=== PATIENT | female | born 1995 | race American Indian/Alaskan Native ===

== ENCOUNTER 2018-11-26 10:58 | Outpatient (CLI) | payer OTHER ==
[2018-11-26] MEDS ORDERED: LACTATED RINGERS 500 ML IV ONE (11:18)
[2018-11-26 13:06] LABS: Amphetamine Screen,Urine PRESUMPTIVE NEGATIVE; Benzodiazepines Screen,Urine PRESUMPTIVE NEGATIVE; Cannabinoid Screen,Urine PRESUMPTIVE NEGATIVE; Cocaine Screen,Urine PRESUMPTIVE NEGATIVE; Methadone Screen,Urine PRESUMPTIVE NEGATIVE; Opiate Screen,Urine PRESUMPTIVE NEGATIVE
[2018-11-26 13:10] LABS: Bilirubin,Urine NEG (Negative); Blood,Urine NEG (Negative); Color,Urine Yellow (Yellow); Mucus,Urine 3+ /HPF; Urobilinogen,Urine < 2.0 mg/dL (<2.0)
[2018-11-26 13:16] VITALS: BP 155/88
[2018-11-26] MEDS ORDERED: LACTATED RINGERS 1,000 ML IV SCH (14:00)
--- NOTE | 2018-11-26 16:09 | Ultrasound Report ---
PROCEDURE: US OB FOLLOW UP TECHNIQUE: Real-time transabdominal sonography of the uterus, placenta, amniotic fluid, adnexa, and fetus was performed with image documentation. Detailed anatomic examination was performed. Jorden urements were obtained to determine age/size. M-mode Doppler was used to document heartbe at. HISTORY: no care COMPARISONS: None. FINDINGS: MATERNAL: Uterus and cervix: The cervix is closed measures 4.8 cm in length. Adnexa and ovaries: Not visualized. IUP: Single live intrauterine gestation. Position: Cephalic Placental position: Fundal, right lateral, without previa . Amniotic fluid volume Normal. WILL is 9.9 cm. Cardiac activity: Regular rhythm at 144 bpm. BIOMETRY: Biparietal diameter: 7.7 cm, corresponding to a gestational age of 30 weeks, 5 days. Head circumference: 28.04 cm, corresponding to a gestational age of 30 weeks, 5 days. abdominal circumference: 26.59 cm, corresponding to a gestational age of 30 weeks, 5 days. Femur length: 5.63 cm, corresponding to a gestational age of 29 weeks, 4 days. Ratio biometry: Normal . Estimated Weight: 1557 grams +/- 230 grams. 3 pounds, 7 ounces +/- 8.ounces. Mean Gestational Age (composite criteria) based on today's measurements: 30 weeks, 3 days. Estimated Due Date (earliest scan): 02/01/2019. IMPRESSION: Single live intrauterine gestation at 30 weeks, 3 days. Estimated due date: 02/01/2019. No anatomic abnormality. This document is electronically signed by Katja Gonzales MD., November 26 2018 04:07:25 PM ET
--- NOTE | 2018-11-26 16:22 | Ultrasound Report ---
PROCEDURE: US OB BPP WO NON-STRESS TECHNIQUE: Sonographic evaluation for breathing, movement, tone, and amniotic flui d volume was performed. HISTORY: well being COMPARISONS: None . FINDINGS: FETUS Amniotic fluid volume Normal-score 2. At least one vertical pocket >2 cm or more in vertical axis . breathing: Normal-score 2 . movement: Normal-score 2 . tone: Normal-score 2 . Score: 8 of 8 . IMPRESSION: Normal biophysical profile . This document is electronically signed by Katja Gonzales MD., November 26 2018 04:19:41 PM ET
== END 2018-11-26 14:05 | disposition home or self-care (01) ==
LOC: TRG 10:58
PROVIDERS: ATTEND Obstetrics & Gynecology
DX: O62.9 Abnormality of forces of labor, unspecified (principal); O26.853 Spotting complicating pregnancy, third trimester; Z87.891 Personal history of nicotine dependence; Z3A.31 31 weeks gestation of pregnancy
CPT/HCPCS: 76816; 76819; 80307; 81001; J7120; 96360; 96361

== ENCOUNTER 2018-11-26 20:15 | Outpatient (CLI) | payer OTHER ==
[2018-11-26] MEDS ORDERED: LACTATED RINGERS 500 ML IV ONE (21:41)
[2018-11-26 21:51] LABS: Hematocrit 29.2 % (30.3-42.9); Hemoglobin 9.8 gm/dl (10.1-14.3); Mean Corpuscular HGB Conc 34 % (30-34); Mean Corpuscular Volume 83 fl (79-97); Platelet Count 222 K/mm3 (140-440); Red Blood Count 3.53 M/mm3 (3.65-5.03)
[2018-11-26 22:13] LABS: Alanine Aminotransferase 12 units/L (7-56); Uric Acid 3.6 mg/dL (3.5-7.6)
[2018-11-26 22:26] VITALS: BP 142/81
== END 2018-11-26 22:39 | disposition home or self-care (01) ==
LOC: TRG 20:15
PROVIDERS: ATTEND Obstetrics & Gynecology
DX: O47.03 False labor before 37 completed weeks of gestation, third trimester (principal); Z3A.31 31 weeks gestation of pregnancy
CPT/HCPCS: 36415; 59025; 76816; 76819; 80307; 81001; 82565; 83615; 84450; 84460; 84550; 85027; 96360; 96361; J7120

== ENCOUNTER 2018-12-03 11:51 | Inpatient (IN) | payer OTHER ==
[2018-12-03] MEDS ORDERED: LACTATED RINGERS 500 ML IV ONE (11:54)
[2018-12-03 12:41] LABS: Hemoglobin 9.6 gm/dl (10.1-14.3); Mean Corpuscular HGB Conc 33 % (30-34); Mean Corpuscular Volume 82 fl (79-97); Platelet Count 214 K/mm3 (140-440); Red Blood Count 3.54 M/mm3 (3.65-5.03); Red Cell Distribution Width 15.1 % (13.2-15.2)
[2018-12-03 12:50] LABS: Bilirubin,Urine NEG (Negative); Blood,Urine NEG (Negative); Color,Urine Amber (Yellow); Mucus,Urine 3+ /HPF
[2018-12-03 12:54] LABS: Protein,Urine >500 mg/dL (Negative)
[2018-12-03 13:05] LABS: Alanine Aminotransferase 10 units/L (7-56); Uric Acid 5.1 mg/dL (3.5-7.6)
[2018-12-03] MEDS ORDERED: LACTATED RINGERS 1,000 ML IV SCH (15:00)
--- NOTE | 2018-12-03 16:39 | History and Physical Report ---
History of Present Illness Date of examination: 12/03/18 Date of admission: 12/03/18 15:04 Chief complaint: EDC Calculations LMP: 12/24/2014 EDC Confirmation: 02/01/2019 Gestational Age: 31 3/7 weeks Past History : 5 Term Births: 3 Premature Births: 0 Living Children: 3 Para: 3 Mult. Births: 0 Prev : 3 Prev. attempt? none Aborta: 1 Elect. Ab: 0 Spont. Ab: 1 Ectopics: 0 # 1 Delivery date: 08/2013 Weeks Gestation: 37 Delivery type: Delivery location: [facility] Infant Sex: Female weight: 5#13 Comments: breech # 2 Delivery date: 08/2010 Weeks Gestation: 8 Comments: SAB # 3 Delivery date: 12/16/2014 Weeks Gestation: 38 Delivery type: Anesthesia type: epidural Delivery location: [facility] Sex: female weight: 5.25 Comments: PPROM, previous c/s desires repeat c/s # 4 Delivery date: 01/28/2016 Weeks Gestation: term labor: no Delivery type: Infant Sex: Male weight: 6#15oz Past Medical History: Pt reports being told she had elevated b/p several times in ED but never offically dx with htn - likely CHTN Past Surgical History: C/S x 3 Past Medical History Anesthesia Complications: negative Anemia: negative Autoimmune Disorder: negative Bleeding Disorder: negative Blood Transfusions: negative Breast Disease: negative Diabetes: negative Heart Disease: negative Hypertension: positive Hepatitis/Liver Disease: negative Kidney Disease/UTI: negative Neurologic/Epilepsy/Migraines: negative Phlebitis/Varicosities: negative Psychiatric: negative Pulmonary Disease/Asthma: negative Thyroid Disease: negative Hospitalizations: negative 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 Infection History Hx of STD: chlamydia HIV Risk Eval: low risk Hepatitis B Risk Eval: low risk Personal hx. of genital herpes: no Partner hx. of genital herpes: no Rash, Viral, or Febrile illness since last LMP? no Varicella/Chicken Pox Status: Previous Disease TB Risk: no Genetic History Congenital Heart Defect: Mom: no Dad: no Ivonne Disease: Mom: no Dad: no Thalassemia Mom: no Dad: no Neural Tube Defect Mom: no Dad: no Down's Syndrome Mom: no Dad: no Dillon-Sachs Mom: no Dad: no Sickle Cell Disease/Trait Mom: no Dad: no Hemophilia Mom: no Dad: no Muscular Dystrophy Mom: no Dad: no Cystic Fibrosis Mom: no Dad: no Vernon Chorea Mom: no Dad: no Mental Retardation Mom: no Dad: no Fragile X Mom: no Dad: no Other Genetic/Chromosomal Disorder Mom: no Dad: no Child w/other defect Mom: no Dad: no Enviromental Exposures Xray Exposure: no Medication, drug, or alcohol use since LMP: no Chemical/Other Exposure: no Exposure to Cat Liter: no Hx of Parvovirus (Fifth Disease): no Occupational Exposure to Children: none Active Medications (reviewed today): IB 800MG TABS () Current Allergies (reviewed today): No known allergies History of present illness: Patient sent from office with elevated BP to have PIH evaluation in triage. LFTs WNL, Urine protein >500. BPs remain elevated in triage. Consult with Dr. Osorio, admit for 24 hour urine collection. Will continue to monitor BPs and determine POC. 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) Family/Genetic History: other (see HPI) Social history: other (see HPI) - Obstetrical History : 5 Medications and Allergies Allergies Allergy/AdvReac Type Severity Reaction Status Date / Time No Known Allergies Allergy Verified 09/09/13 00:32 Home Medications Medication Instructions Recorded Confirmed Last Taken Type No Known Home Medications [No 07/23/15 01/14/16 Unknown History Reported Home Medications] Active Meds: Active Medications Lactated Ringer's (Lactated Ringers) 1,000 mls @ 125 mls/hr IV DIRECT OZZIE Multivitamins/Iron/Calcium ( Vitamin) 1 each PO QDAY OZZIE Review of Systems All systems: negative Cardiovascular: other (heart "feels tingly sometimes") - Vital Signs Vital signs: Vital Signs Pulse BP 77 160/92 12/03/18 12:16 12/03/18 12:16 Temp Pulse Resp BP Pulse Ox 98.1 F 59 L 16 168/85 12/03/18 12:26 12/03/18 16:33 12/03/18 12:26 12/03/18 16:33 - Physical Exam Breasts: Positive: normal Cardiovascular: Regular rate, Normal S1, Normal S2 Lungs: Positive: Clear to auscultation Abdomen: Positive: normal appearance, soft, normal bowel sounds. Negative: distention, tenderness Genitourinary (Female): Positive: normal external genitalia Vulva: both: normal Vagina: Positive: normal moisture. Negative: discharge Cervix: Negative: lesion, discharge Uterus: Positive: normal size, normal contour Adnexa: both: normal Anus/Rectum: Negative: rectal mass, hemorrhoids Extremities: Positive: edema (mild 1+ pitting edema to bilateral feet and hands) Deep Tendon Reflex Grade: Normal +2 - Obstetrical FHR: auscultation normal Uterine Contraction Monitor Mode: External Uterine Contraction Pattern: Absent (soft, nontender) Uterine Tone Measurement Phase: Resting Results Result Diagrams: 12/03/18 12:28 12/03/18 12:28 Abnormal lab results 12/03/18 12/03/18 12/03/18 Range/Units 12:03 12:28 12:28 WBC 13.6 H (4.5-11.0) K/mm3 RBC 3.54 L (3.65-5.03) M/mm3 Hgb 9.6 L (10.1-14.3) gm/dl Hct 29.0 L (30.3-42.9) % MCH 27 L (28-32) pg Creatinine 0.6 L (0.7-1.2) mg/dL Lactate Dehydrogenase 228 H (91-180) units/L Ur Specific [place] 1.039 H (1.003-1.030) Urine WBC (Auto) 16.0 H (0.0-6.0) /HPF All other labs normal. Assessment and Plan 24 hour urine initiated. BPs ranging from 140-170/80-90. Patient denies any headache, visual disturbances, RUQ pain. States "heart feels tingly sometimes" x 2 weeks. Cont. pulse ox ordered. Mild edema noted to hands and feet bilaterally. DTRs 2+. Pt reports she has been to the ER muliple times in the past and has been told her BP was elevated but was never started on BP medications, she does not see a PCP. Consult with Dr. Osorio- will begin magnesium infusion, BMZ series, UDS. Continue 24 hour urine and monitoring of BPs. Patient updated on POC and agrees to proceed. RN to call with any BPs >160/100.
[2018-12-03] MEDS ORDERED: MAGNESIUM SULFATE 4GM/100ML 4 GM/100 ML BAG IV ONE (17:10)
[2018-12-03] MEDS: PRENATAL VITAMIN PO SCH (17:15)
[2018-12-03] MEDS: CELESTONE SOLUSPAN IM SCH (18:02)
[2018-12-03] MEDS: MAGNESIUM SULFATE 40GM/1000ML 40 GM/1,000 ML BAG IV SCH (18:24)
[2018-12-03 19:32] LABS: Amphetamine Screen,Urine PRESUMPTIVE NEGATIVE; Benzodiazepines Screen,Urine PRESUMPTIVE NEGATIVE; Cannabinoid Screen,Urine PRESUMPTIVE NEGATIVE; Cocaine Screen,Urine PRESUMPTIVE NEGATIVE; Methadone Screen,Urine PRESUMPTIVE NEGATIVE; Opiate Screen,Urine PRESUMPTIVE NEGATIVE
[2018-12-03] MEDS ORDERED: APRESOLINE IV ONE (19:56)
[2018-12-03] MEDS: NORMODYNE PO SCH (21:19)
[2018-12-03] MEDS ORDERED: AMBIEN PO PRN (23:07)
--- NOTE | 2018-12-04 08:17 | Event Note ---
Date: 12/04/18 Called nurse and notified her of new orders for labs and 1hGTT. Also requested RN verify AMFM was made aware of the consult placed on her chart.
[2018-12-04] MEDS: LACTATED RINGERS 1,000 ML IV SCH (08:42)
[2018-12-04] MEDS: PRENATAL VITAMIN PO SCH (09:56)
[2018-12-04] MEDS: NORMODYNE PO SCH ×2 (09:56→21:59)
[2018-12-04 11:18] LABS: Hepatitis C Virus Antibody Non-Reactive (NonReactive)
--- NOTE | 2018-12-04 11:52 | Consultation ---
History of Present Illness Consult date: 12/04/18 Requesting physician: DELICIA TERRAZAS Reason for consult: contractions, gestational hypertension History of present illness: As you are aware, this is a 23 year old para 3013 who is currently at 31 weeks based who presents to [facility] for admission due to contractions and elevated blood pressured diagnosed by Dr. Terrazas. Patient was sent from her MDs office due to elevated BP. She was sent to L&D for further evaluation. Patient presented WITHOUT headache and has slightly increased elevated blood pressure. She received Labetalol on admission. At the time she had labile blood pressures. Her baseline 24 hour urine featured is NOT AVAILABLE. A current 24 hour urine is PENDING. Her blood pressure while in the hospital has been stable (see below). Currently, she DENIES headache, dizziness or visual changes. Patient denies leakage of fluid, vaginal bleeding or uterine contractions. She endorses positive movement. PAST MEDICAL HISTORY: Patient gives does NOT have history of elevated blood pressure Patient is NOT taking antihypertensive medications in this . PAST OBSTETRICAL HISTORY: 2014: CS at term 2015: CS at term 2016: CS at term. SAB x 1 AVAILABLE LAB TEST FROM [facility]: WBC: 13.6 HGB: 9.6 HCT: 29 PLT: 214 AST: 18 ALT: 10 24 hour urine: PENDING No evidence of HELLP. See results in chart. 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) Family/Genetic History: other (see HPI) - Obstetrical History : 5 Medications and Allergies Allergies Allergy/AdvReac Type Severity Reaction Status Date / Time No Known Allergies Allergy Verified 09/09/13 00:32 Home Medications Medication Instructions Recorded Confirmed Last Taken Type No Known Home Medications [No 07/23/15 01/14/16 Unknown History Reported Home Medications] Active Meds: Active Medications Betamethasone Acet/Betameth SodPhos (Celestone Soluspan) 12 mg IM Q24HR@1800 OZZIE Stop: 12/04/18 18:01 Last Admin: 12/03/18 18:02 Dose: 12 mg Documented by: Lactated Ringer's (Lactated Ringers) 1,000 mls @ 125 mls/hr IV DIRECT OZZIE Last Admin: 12/04/18 08:42 Dose: 125 mls/hr Documented by: Magnesium Sulfate (Magnesium Sulfate 40gm/1000ml) 40 gm in 1,000 mls @ 50 mls/hr IV DIRECT OZZIE Last Admin: 12/03/18 18:24 Dose: 2 gm/hr, 50 mls/hr Documented by: Labetalol HCl (Normodyne) 200 mg PO BID [facility] Last Admin: 12/04/18 09:56 Dose: 200 mg Documented by: Multivitamins/Iron/Calcium ( Vitamin) 1 each PO QDAY OZZIE Last Admin: 12/04/18 09:56 Dose: 1 each Documented by: Zolpidem Tartrate (Ambien) 10 mg PO QHS PRN PRN Reason: Insomnia Last Admin: 12/03/18 23:31 Dose: 10 mg Documented by: - Vital Signs Vital signs: Vital Signs Pulse BP 77 160/92 12/03/18 12:16 12/03/18 12:16 Temp Pulse Resp BP Pulse Ox 98.1 F 78 16 142/76 12/03/18 12:26 12/04/18 11:21 12/03/18 12:26 12/04/18 11:21 Results Result Diagrams: 12/03/18 12:28 12/03/18 12:28 Abnormal lab results 12/03/18 12/03/18 12/03/18 Range/Units 12:03 12:28 12:28 WBC 13.6 H (4.5-11.0) K/mm3 RBC 3.54 L (3.65-5.03) M/mm3 Hgb 9.6 L (10.1-14.3) gm/dl Hct 29.0 L (30.3-42.9) % MCH 27 L (28-32) pg Creatinine 0.6 L (0.7-1.2) mg/dL Magnesium (1.7-2.3) mg/dL Lactate Dehydrogenase 228 H (91-180) units/L Ur Specific [place] 1.039 H (1.003-1.030) Urine WBC (Auto) 16.0 H (0.0-6.0) /HPF 12/03/18 12/04/18 12/04/18 Range/Units 20:42 02:29 09:32 WBC (4.5-11.0) K/mm3 RBC (3.65-5.03) M/mm3 Hgb (10.1-14.3) gm/dl Hct (30.3-42.9) % MCH (28-32) pg Creatinine (0.7-1.2) mg/dL Magnesium 3.10 H 4.00 H 4.20 H (1.7-2.3) mg/dL Lactate Dehydrogenase (91-180) units/L Ur Specific [place] (1.003-1.030) Urine WBC (Auto) (0.0-6.0) /HPF All other labs normal. Assessment and Plan ASSESSMENT * IUP at gestation at 31 weeks * Rule out Mild preeclampsia. * No symptoms of severe preeclampsia. * No evidence of HELLP syndrome * Diagnosis: Mild preeclampsia without severe symptoms vs. sporadic hypertension. * Complete a 24 hour urine and observation for severe symptoms. * If patient remains stable consider discharge home or hospital observation until symptoms of severe preeclampsia or until 37 weeks gestation (see below). * prolongation should NOT occur in the presence of any signs of symptoms of severe preeclampsia. * Symptomatically she DENIES ongoing symptoms of preeclampsia. RECOMMENDATIONS: 1. Given her gestational age we would recommend DELIVERY in the presence of any findings which would suggest SEVERE preeclampsia. 2. At present we recommend further hospitalization on the antepartum unit at [facility]. 3. Kindly follow-up the results for a repeat 24-hour urine for protein and creatinine clearance 4. In the presence of overt evidence of SEVERE preeclampsia we recommend delivery of this patient. 5. At 31 weeks gestation; it would appear that there is some benefit to an expectant management protocol to prolong gestation in order to improve outcome without increasing maternal morbidity. In a patient with MILD preeclampsia we recommend DELIVERY at 37 weeks. In a patient with SEVERE preeclampsia we recommend DELIVERY either AT DIAGNOSIS or at 34 weeks gestation. Reference: REFERENCE: Medically indicated late- and early-term deliveries. Committee Opinion No. [id number]. [employer]. Obstet Gynecol 2013;121:53157. 6. Kindly contact [facility] if there is any question as to whether this patient is a candidate for delivery. 7. The indications for discontinuation of expectant management and DELIVERY in this patient would include ANY of the following: * heart rate abnormalities, (ie, bradycardia , repetitive late or variable decelerations) * Thrombocytopenia * Hemolysis, * Elevation in liver function tests * Blood pressure that is very labile or poorly controlled with reasonable doses of intravenous labetalol * Symptoms of severe pre-eclampsia epigastric discomfort, headache, dizziness, blurred vision, RUQ pain, seizure. * Standard obstetrical indications 8. Contact [facility] with the results of the follow-up 24 hour urine. Thank you for allowing us to participate in the care of this patient. We look forward to the opportunity to assist in her continued management. If you have any questions, we may be reached [phone]. Shai Dave M.D.
--- NOTE | 2018-12-04 12:40 | Progress Note ---
Assessment and Plan Patient resting in bed, SCDs on the floor. reports swelling and pain "all over her body." Pt not able to articulate details about her pain, possible r/t prolonged laying in bed. encouraged pt to wear SCDs to reduce risk of DVTs. Pt denies DARNELL/visual changes or epigastric pain. She denies ctx, leaking or bleeding. she reports active FM. No I&O's have been documented on patient since admission. advised charge nurse. 24h urine to be completed @ 1400 today. Pt again reported having b/p's "150-160's" twice while in ED last year for tooth pain and migraine (not ). she states "they have never been this high." Advised pt that lack of care makes diagnosis of chtn verses pre-e difficult. Nurse contacted [facility] for consult instead of [facility] as ordered. Dr. Torres evaluated patient this morning. reviewed recommendations and clarified that he does not want patient transferred to [facility] as mentioned in his note - it was a typo. Order changed to [facility] consult. Recommendations noted for continued observation in the absence of signs of distress, labor or severe pre-e. dx mild pre-e verses sporadic htn. - Patient Problems (1) 32 weeks gestation of Current Visit: Yes Status: Acute (2) Elevated blood pressure affecting in third trimester, antepartum Current Visit: Yes Status: Acute Plan to address problem: Complete 24h urine Continue monitoring for signed of pre-e (3) Insufficient care in third trimester Current Visit: Yes Status: Acute Plan to address problem: labs drawn this morning 1hGTT ordered for the AM (4) Previous section Current Visit: Yes Status: Acute Plan to address problem: repeat c/s at time of delivery Subjective - Subjective Date of service: 12/04/18 (Multifold Operator note) Principal diagnosis: IUP @ 31+4, elevated blood pressure, Insufficent PNC Patient reports: movement normal, no new complaints, no loss of fluid, no vaginal bleeding, no contractions Objective - Vital Signs Vital Signs: Vital Signs - 12hr 12/04/18 12/04/18 12/04/18 01:22 03:21 04:21 Pulse Rate 80 87 97 H Blood Pressure 138/82 157/94 140/83 12/04/18 12/04/18 12/04/18 05:21 06:21 07:21 Pulse Rate 80 108 H 80 Blood Pressure 143/78 163/93 146/69 12/04/18 12/04/18 12/04/18 08:21 09:21 09:56 Pulse Rate 87 83 82 Blood Pressure 130/63 144/72 144/72 12/04/18 12/04/18 12/04/18 10:21 11:21 12:21 Pulse Rate 98 H 78 92 H Blood Pressure 139/90 142/76 165/89 - Exam Breasts: normal Cardiovascular: Regular rate, Normal S1 Lungs: Clear to auscultation, Normal air movement Abdomen: Present: normal appearance, soft Vulva: both: normal Uterus: Present: normal FHR: category 1 Uterine Contraction Monitor Mode: External Uterine Contraction Pattern: Absent Uterine Tone Measurement Phase: Resting Extremities: edema (1+ nonpitting) Deep Tendon Reflex Grade: Normal +2 - Labs Labs: Abnormal Labs 12/03/18 12/03/18 12/03/18 12:03 12:28 12:28 WBC 13.6 H RBC 3.54 L Hgb 9.6 L Hct 29.0 L MCH 27 L Creatinine 0.6 L Magnesium Lactate Dehydrogenase 228 H Ur Specific [place] 1.039 H Urine WBC (Auto) 16.0 H 12/03/18 12/04/18 12/04/18 20:42 02:29 09:32 WBC RBC Hgb Hct MCH Creatinine Magnesium 3.10 H 4.00 H 4.20 H Lactate Dehydrogenase Ur Specific [place] Urine WBC (Auto) Laboratory Results - last 24 hr 12/03/18 12/03/18 12/03/18 12:03 12:28 12:28 WBC 13.6 H RBC 3.54 L Hgb 9.6 L Hct 29.0 L MCV 82 MCH 27 L MCHC 33 RDW 15.1 Plt Count 214 Sickle Cell Screen Creatinine 0.6 L Estimated GFR > 60 Uric Acid 5.1 Magnesium AST 18 ALT 10 Lactate Dehydrogenase 228 H Urine Color Milena Urine Turbidity Slightly-cloudy Urine pH 6.0 Ur Specific [place] 1.039 H Urine Protein >500 Urine Glucose (UA) Neg Urine Ketones Tr Urine Blood Neg Urine Nitrite Neg Urine Bilirubin Neg Urine Urobilinogen 2.0 Ur Leukocyte Esterase Sm Urine WBC (Auto) 16.0 H Urine RBC (Auto) 4.0 U Epithel Cells (Auto) 9.0 Urine Mucus 3+ Urine Opiates Screen Urine Methadone Screen Ur Barbiturates Screen Ur Phencyclidine Scrn Ur Amphetamines Screen U Benzodiazepines Scrn Urine Cocaine Screen U Marijuana (THC) Screen Drugs of Abuse Note RPR Hep Bs Antigen Hepatitis C Antibody HIV 1&2 Antibody Rapid HIV P24 Antigen Rubella IgG Antibody Blood Type 12/03/18 12/03/18 12/04/18 18:10 20:42 02:29 WBC RBC Hgb Hct MCV MCH MCHC RDW Plt Count Sickle Cell Screen Creatinine Estimated GFR Uric Acid Magnesium 3.10 H 4.00 H AST ALT Lactate Dehydrogenase Urine Color Urine Turbidity Urine pH Ur Specific [place] Urine Protein Urine Glucose (UA) Urine Ketones Urine Blood Urine Nitrite Urine Bilirubin Urine Urobilinogen Ur Leukocyte Esterase Urine WBC (Auto) Urine RBC (Auto) U Epithel Cells (Auto) Urine Mucus Urine Opiates Screen Presumptive negative Urine Methadone Screen Presumptive negative Ur Barbiturates Screen Presumptive negative Ur Phencyclidine Scrn Presumptive negative Ur Amphetamines Screen Presumptive negative U Benzodiazepines Scrn Presumptive negative Urine Cocaine Screen Presumptive negative U Marijuana (THC) Screen Presumptive negative Drugs of Abuse Note Disclamer RPR Hep Bs Antigen Hepatitis C Antibody HIV 1&2 Antibody Rapid HIV P24 Antigen Rubella IgG Antibody Blood Type 12/04/18 12/04/18 12/04/18 09:32 09:32 09:32 WBC RBC Hgb Hct MCV MCH MCHC RDW Plt Count Sickle Cell Screen Negative Creatinine Estimated GFR Uric Acid Magnesium 4.20 H AST ALT Lactate Dehydrogenase Urine Color Urine Turbidity Urine pH Ur Specific [place] Urine Protein Urine Glucose (UA) Urine Ketones Urine Blood Urine Nitrite Urine Bilirubin Urine Urobilinogen Ur Leukocyte Esterase Urine WBC (Auto) Urine RBC (Auto) U Epithel Cells (Auto) Urine Mucus Urine Opiates Screen Urine Methadone Screen Ur Barbiturates Screen Ur Phencyclidine Scrn Ur Amphetamines Screen U Benzodiazepines Scrn Urine Cocaine Screen U Marijuana (THC) Screen Drugs of Abuse Note RPR Hep Bs Antigen Hepatitis C Antibody Non-reactive HIV 1&2 Antibody Rapid Non react HIV P24 Antigen Non react Rubella IgG Antibody Immune Blood Type 12/04/18 12/04/18 12/04/18 09:32 09:32 09:32 WBC RBC Hgb Hct MCV MCH MCHC RDW Plt Count Sickle Cell Screen Creatinine Estimated GFR Uric Acid Magnesium AST ALT Lactate Dehydrogenase Urine Color Urine Turbidity Urine pH Ur Specific [place] Urine Protein Urine Glucose (UA) Urine Ketones Urine Blood Urine Nitrite Urine Bilirubin Urine Urobilinogen Ur Leukocyte Esterase Urine WBC (Auto) Urine RBC (Auto) U Epithel Cells (Auto) Urine Mucus Urine Opiates Screen Urine Methadone Screen Ur Barbiturates Screen Ur Phencyclidine Scrn Ur Amphetamines Screen U Benzodiazepines Scrn Urine Cocaine Screen U Marijuana (THC) Screen Drugs of Abuse Note RPR Nonreactive Hep Bs Antigen Non-reactive Hepatitis C Antibody HIV 1&2 Antibody Rapid HIV P24 Antigen Rubella IgG Antibody Blood Type O POSITIVE
--- NOTE | 2018-12-04 13:02 | Event Note ---
Date: 12/04/18 rn states output 150 since 0900 - 37.5ml/hr. Advised RN Nikia Sim to place urine meter on lewis and to call provider for output less than 30ml/hr.
--- NOTE | 2018-12-04 14:18 | Event Note ---
Date: 12/04/18 Agree with MW exam and note. Several minutes taken to d/w the plan of care. She inquired about taking a shower and ambulation. I d/w that the MgSO4 will likely be d/c in the pm or the am and she will be able to shower at this time. 24hr protein is completed and will be sent for analysis at time. Pt has been seen by RE and recommendations have been noted with thanks. Will con't expectant management inhouse at this time. All questions were addressed and answered to pt and s/o.
--- NOTE | 2018-12-04 17:27 | Event Note ---
Date: 12/04/18 Total progen in 24hrs is 2352 mg(2.35g) As per MFM note provider will be called with these results. Cont expectant management for now and await further recommendations.
[2018-12-04] MEDS: CELESTONE SOLUSPAN IM SCH (18:34)
[2018-12-05] MEDS: NORMODYNE PO SCH ×2 (10:02→21:05)
[2018-12-05] MEDS: PRENATAL VITAMIN PO SCH (10:02)
--- NOTE | 2018-12-05 11:42 | Progress Note ---
Assessment and Plan patient eating regular breakfast after completion of 1hGTT. results pending. Pt denies DARNELL, visual changes or epigastric pain. pt denies ctx, vaginal leaking or bleeding. she reports + FM. Pt states she noted a wet chux in the bathroom but never noted anything from vagina. pt wearing marisol-pad; currently dry, no leaking noted. Advised to inform RN of any vaginal leaking. Pt agrees. 24h urine TP 2352mg. b/p's 140's/70-80's. RN states received verbal order from Dr. Dave for NST q shift yesterday. Will order tamai hose as patient is continuing to refuse to wear SCDs. Continue current management. - Patient Problems (1) 32 weeks gestation of Current Visit: Yes Status: Acute (2) Insufficient care in third trimester Current Visit: Yes Status: Acute (3) Previous section Current Visit: Yes Status: Acute Plan to address problem: Plan for repeat c/s @ 37 weeks per [facility]'s recommendation (4) Mild pre-eclampsia Current Visit: Yes Status: Acute Qualifiers: Trimester: third trimester Qualified Code(s): O14.03 - Mild to moderate pre-eclampsia, third trimester Subjective - Subjective Date of service: 12/05/18 Principal diagnosis: IUP @ 31+5, mild pre-e, Insufficent PNC Patient reports: movement normal, no new complaints (denies DARNELL, visual changes or epigastric pain), no loss of fluid, no vaginal bleeding, no contractions Objective - Vital Signs Vital Signs: Vital Signs - 12hr 12/05/18 12/05/18 12/05/18 00:29 00:34 04:00 Temperature 97.7 F 99.3 F Pulse Rate 76 Respiratory 18 Rate Blood Pressure 148/80 12/05/18 04:10 Temperature Pulse Rate 93 H Respiratory Rate Blood Pressure 146/79 - Exam Breasts: normal Cardiovascular: Regular rate Lungs: Clear to auscultation, Normal air movement Abdomen: Present: normal appearance, soft Vulva: both: normal Uterus: Present: normal FHR: auscultation normal Uterine Contraction Monitor Mode: External Uterine Contraction Pattern: Absent Uterine Tone Measurement Phase: Resting Extremities: edema (2+ edema, mild pitting to knee) Deep Tendon Reflex Grade: Normal +2 - Labs Labs: Abnormal Labs 0412/03/18 12/03/18 12:03 12:28 12:28 WBC 13.6 H RBC 3.54 L Hgb 9.6 L Hct 29.0 L MCH 27 L Creatinine 0.6 L Magnesium Lactate Dehydrogenase 228 H Ur Specific [place] 1.039 H Urine WBC (Auto) 16.0 H Ur Total Protein 24 Hr Urine Total Protein 12/03/18 12/03/18 12/04/18 14:00 20:42 02:29 WBC RBC Hgb Hct MCH Creatinine Magnesium 3.10 H 4.00 H Lactate Dehydrogenase Ur Specific [place] Urine WBC (Auto) Ur Total Protein 24 Hr 2352.00 H Urine Total Protein 196 H 12/04/18 12/04/18 09:32 14:34 WBC RBC Hgb Hct MCH Creatinine Magnesium 4.20 H 4.70 H Lactate Dehydrogenase Ur Specific [place] Urine WBC (Auto) Ur Total Protein 24 Hr Urine Total Protein Laboratory Results - last 24 hr 12/03/18 12/04/18 12/04/18 14:00 09:32 09:32 Glucose Tolerance Magnesium Urine Total Volume 1200 Ur Total Protein 24 Hr 2352.00 H Urine Total Protein 196 H RPR Nonreactive Antibody Screen Negative 12/04/18 12/05/18 14:34 08:12 Glucose Tolerance Magnesium 4.70 H Urine Total Volume Ur Total Protein 24 Hr Urine Total Protein RPR Antibody Screen
--- NOTE | 2018-12-05 12:00 | Event Note ---
Date: 12/05/18 Agree with MW exam and note. As per RN orders were given last pm to d/c magnesium, allow pt to eat, and to do NST q shift. Pt has not been seen by [facility] provider at this time. Will con't expectant management. BPs are stable on current bp meds.
[2018-12-05] MEDS ORDERED: TUMS PO PRN (13:23)
--- NOTE | 2018-12-05 13:28 | Event Note ---
Date: 12/05/18 this morning's 1hGTT 227 Diet changed to consistent carbohydrate. <24h post completion of steroids. Order for for fasting and 2h PP accuchecks. Will inform [facility].
[2018-12-05] MEDS ORDERED: TYLENOL PO PRN (13:43)
[2018-12-05] MEDS ORDERED: BICITRA PO NR (13:50)
[2018-12-05] MEDS ORDERED: BICITRA ONE (13:57)
--- NOTE | 2018-12-05 14:08 | Progress Note ---
Assessment and Plan ASSESSMENT * IUP at gestation at 31 weeks 5 days * Rule out Mild preeclampsia. * No symptoms of severe preeclampsia. * No evidence of HELLP syndrome * Diagnosis: Mild preeclampsia without severe symptoms vs. sporadic hypertension. * Complete a 24 hour urine and observation for severe symptoms. * If patient remains stable consider discharge home or hospital observation until symptoms of severe preeclampsia or until 37 weeks gestation (see below). * prolongation should NOT occur in the presence of any signs of symptoms of severe preeclampsia. * Patient is NOT a candidate for discharge. * Elevated GCT. Treat as GDM with fasting and 2 hours postprandial blood glucose. We will follow-up. RECOMMENDATIONS: 1. Given her gestational age we would recommend DELIVERY in the presence of any findings which would suggest SEVERE preeclampsia. 2. At present we recommend further hospitalization on the antepartum unit at [facility]. 3. Kindly follow-up the results for a repeat 24-hour urine for protein and creatinine clearance 4. In the presence of overt evidence of SEVERE preeclampsia we recommend delivery of this patient. 5. At 31 weeks gestation; it would appear that there is some benefit to an expectant management protocol to prolong gestation in order to improve outcome without increasing maternal morbidity. In a patient with MILD preeclampsia we recommend DELIVERY at 37 weeks. In a patient with SEVERE preeclampsia we recommend DELIVERY either AT DIAGNOSIS or at 34 weeks gestation. Reference: REFERENCE: Medically indicated late- and early-term deliveries. Committee Opinion No. [id number]. [employer]. Obstet Gynecol 2013;121:85952. 6. Kindly contact [facility] if there is any question as to whether this patient is a candidate for delivery. 7. The indications for discontinuation of expectant management and DELIVERY in this patient would include ANY of the following: * heart rate abnormalities, (ie, bradycardia , repetitive late or variable decelerations) * Thrombocytopenia * Hemolysis, * Elevation in liver function tests * Blood pressure that is very labile or poorly controlled with reasonable doses of intravenous labetalol * Symptoms of severe pre-eclampsia epigastric discomfort, headache, dizziness, blurred vision, RUQ pain, seizure. * Standard obstetrical indications * Patient is NOT a candidate for discharge. Thank you for allowing us to participate in the care of this patient. We look forward to the opportunity to assist in her continued management. If you have any questions, we may be reached [phone]. Shai Dave M.D. Subjective - Subjective Date of service: 12/05/18 Principal diagnosis: IUP @ 31+5, mild pre-e, Insufficent PNC Interval history: As you are aware, this is a 23 year old para 3013 who is currently at 31 weeks 5 days based who presents to [facility] for admission due to contractions and elevated blood pressured diagnosed by Dr. Osorio. Patient was sent from her MDs office due to elevated BP. At the time she had labile blood pressures. A current 24 hour urine is 2352 mg protein.. PAST MEDICAL HISTORY: Patient gives does NOT have history of elevated blood pressure Patient is NOT taking antihypertensive medications in this . PAST OBSTETRICAL HISTORY: 2014: CS at term 2015: CS at term 2016: CS at term. SAB x 1 Patient reports: movement normal, no new complaints (denies DARNELL, visual changes or epigastric pain), no loss of fluid, no vaginal bleeding, no contractions Objective - Vital Signs Vital Signs: Vital Signs - 12hr 12/05/18 12/05/18 12/05/18 04:00 04:10 13:34 Temperature 99.3 F Pulse Rate 93 H 75 Respiratory Rate Blood Pressure 146/79 142/67 12/05/18 14:01 Temperature Pulse Rate Respiratory 18 Rate Blood Pressure - Labs Labs: Abnormal Labs 12/03/18 12/03/18 12/03/18 12:03 12:28 12:28 WBC 13.6 H RBC 3.54 L Hgb 9.6 L Hct 29.0 L MCH 27 L Creatinine 0.6 L Magnesium Lactate Dehydrogenase 228 H Ur Specific [place] 1.039 H Urine WBC (Auto) 16.0 H Ur Total Protein 24 Hr Urine Total Protein 12/03/18 12/03/18 12/04/18 14:00 20:42 02:29 WBC RBC Hgb Hct MCH Creatinine Magnesium 3.10 H 4.00 H Lactate Dehydrogenase Ur Specific [place] Urine WBC (Auto) Ur Total Protein 24 Hr 2352.00 H Urine Total Protein 196 H 12/04/18 12/04/18 09:32 14:34 WBC RBC Hgb Hct MCH Creatinine Magnesium 4.20 H 4.70 H Lactate Dehydrogenase Ur Specific [place] Urine WBC (Auto) Ur Total Protein 24 Hr Urine Total Protein Laboratory Results - last 24 hr 12/03/18 12/04/18 12/05/18 14:00 14:34 08:12 Glucose Tolerance Magnesium 4.70 H Urine Total Volume 1200 Ur Total Protein 24 Hr 2352.00 H Urine Total Protein 196 H
--- NOTE | 2018-12-05 18:16 | XRay Report ---
PROCEDURE: XR CHEST 1V AP TECHNIQUE: Chest radiograph single view. HISTORY: chest pain COMPARISONS: None . FINDINGS: Single frontal view of the chest was acquired. There is cardiomegaly. There is prominence of perihilar markings which could represent pulmonary eliecer a or viral pneumonitis. There is no consolidative infiltrate. IMPRESSION: Cardiomegaly Prominence of perihilar markings which could represent mild pulmonary edema or viral pneumonitis This document is electronically signed by Oral Fonseca MD., December 05 2018 06:14:18 PM ET
[2018-12-05 18:21] LABS: Alanine Aminotransferase 14 units/L (7-56)
[2018-12-05] MEDS ORDERED: APRESOLINE IV ONE (18:33)
[2018-12-05] MEDS ORDERED: APRESOLINE ONE (18:39)
--- NOTE | 2018-12-05 18:45 | Event Note ---
Date: 12/05/18 pt c/o worsening upper abd/chest pain radiating to neck and now ctx. EKG - normal sinus rhythm. Pulse ox 98-100% on RA. CXR - cardiomegaly with possible mild pulmonary edema or viral pneumonia. Dr. Todd updated - order for echo and consult hospitalist.
[2018-12-05] MEDS: LACTATED RINGERS 1,000 ML IV SCH (18:48)
--- NOTE | 2018-12-05 20:06 | Progress Note ---
Assessment and Plan - Patient Problems (1) Chest discomfort Current Visit: Yes Status: Acute Plan to address problem: -RUQ sono ordered for the am -CXR shows cardiomegaly, viral pneumonitis vs pulmonary edema-medicine has been consulted -ECHO ordered for the am -O2sat and bp are normal and stable -plan of care d/w pt and her mother(via the phone) with charge nurse at the bedside (2) 32 weeks gestation of Current Visit: Yes Status: Acute (3) Insufficient care in third trimester Current Visit: Yes Status: Acute (4) Mild pre-eclampsia Current Visit: Yes Status: Acute Qualifiers: Trimester: third trimester Qualified Code(s): O14.03 - Mild to moderate pre-eclampsia, third trimester Plan to address problem: -cont current mgt -see mfm note and recs Subjective - Subjective Date of service: 12/05/18 Principal diagnosis: IUP @ 31+5, mild pre-e, Insufficent PNC Interval history: Pt c/o chest discomfort initially was RUQ not is more epigastric. CXR showed cardiomegaly and pulmonary edema vs viral pneumonitis. The hospitalist team has been consulted and ECHO ordered. Pt also will get RUQ sono to evaluate the gall bladder in the am as she has been eating today. O2sat are normal, EKG showed "normal EKG" LFTs are normal as well. She at this this time show no s/sx of worsening mild pre E. I took several minutes at the bedside to d/w pt findings thus far and plan moving forward with hospitalist consultation, RUQ sono, and Echo. Pt and her mother(who was on the phone) expressed understanding and all questions were answered. She no longer is c/o contractions so will resume NSTs q shift and allow pt to eat and make npo after midnight. Patient reports: movement normal, no new complaints (denies DARNELL, visual changes or epigastric pain), no loss of fluid, no vaginal bleeding, no contra ctions Objective - Vital Signs Vital Signs: Vital Signs - 12hr 12/05/18 12/05/18 12/05/18 13:34 14:01 15:05 Temperature Pulse Rate 75 68 Respiratory 18 Rate Blood Pressure 142/67 176/83 O2 Sat by Pulse Oximetry 12/05/18 12/05/18 12/05/18 15:09 15:14 15:19 Temperature Pulse Rate 71 71 66 Respiratory Rate Blood Pressure O2 Sat by Pulse 97 97 99 Oximetry 12/05/18 12/05/18 12/05/18 15:24 15:29 15:34 Temperature Pulse Rate 101 H 67 63 Respiratory Rate Blood Pressure O2 Sat by Pulse 100 97 98 Oximetry 12/05/18 12/05/18 12/05/18 15:39 15:44 15:49 Temperature Pulse Rate 68 81 76 Respiratory Rate Blood Pressure O2 Sat by Pulse 97 97 98 Oximetry 12/05/18 12/05/18 12/05/18 15:54 15:59 16:04 Temperature Pulse Rate 61 62 84 Respiratory Rate Blood Pressure O2 Sat by Pulse 98 98 97 Oximetry 12/05/18 12/05/18 12/05/18 16:09 16:14 16:19 Temperature Pulse Rate 60 62 66 Respiratory Rate Blood Pressure O2 Sat by Pulse 98 99 97 Oximetry 12/05/18 12/05/18 12/05/18 16:24 16:29 16:34 Temperature Pulse Rate 65 68 68 Respiratory Rate Blood Pressure O2 Sat by Pulse 98 99 98 Oximetry 12/05/18 12/05/18 12/05/18 16:39 16:43 16:44 Temperature Pulse Rate 77 64 72 Respiratory Rate Blood Pressure 201/91 O2 Sat by Pulse 99 99 Oximetry 12/05/18 12/05/18 12/05/18 16:46 16:49 16:54 Temperature Pulse Rate 66 67 96 H Respiratory Rate Blood Pressure 175/80 O2 Sat by Pulse 99 100 Oximetry 12/05/18 12/05/18 12/05/18 16:55 16:59 17:04 Temperature Pulse Rate 65 67 67 Respiratory Rate Blood Pressure 169/82 O2 Sat by Pulse 98 98 Oximetry 12/05/18 12/05/18 12/05/18 17:09 17:14 17:17 Temperature Pulse Rate 63 70 64 Respiratory Rate Blood Pressure 186/88 O2 Sat by Pulse 98 97 Oximetry 12/05/18 12/05/18 12/05/18 17:19 17:24 17:29 Temperature Pulse Rate 62 65 63 Respiratory Rate Blood Pressure O2 Sat by Pulse 98 97 97 Oximetry 12/05/18 12/05/18 12/05/18 17:34 17:37 17:39 Temperature 98.0 F Pulse Rate 69 64 62 Respiratory Rate Blood Pressure O2 Sat by Pulse 100 98 Oximetry 12/05/18 12/05/18 12/05/18 17:55 17:59 18:00 Temperature Pulse Rate 65 65 66 Respiratory Rate Blood Pressure 190/91 O2 Sat by Pulse 98 100 Oximetry 12/05/18 12/05/18 12/05/18 18:05 18:10 18:14 Temperature Pulse Rate 75 68 60 Respiratory Rate Blood Pressure 194/93 O2 Sat by Pulse 99 100 Oximetry 12/05/18 12/05/18 12/05/18 18:15 18:20 18:25 Temperature Pulse Rate 68 65 69 Respiratory Rate Blood Pressure O2 Sat by Pulse 100 98 100 Oximetry 12/05/18 12/05/18 12/05/18 18:29 18:30 18:35 Temperature Pulse Rate 65 64 62 Respiratory Rate Blood Pressure 189/88 O2 Sat by Pulse 99 100 Oximetry 12/05/18 12/05/18 12/05/18 18:40 18:44 18:45 Temperature Pulse Rate 64 61 67 Respiratory Rate Blood Pressure 189/88 189/90 O2 Sat by Pulse 99 100 Oximetry 12/05/18 12/05/18 12/05/18 18:50 18:51 18:55 Temperature Pulse Rate 71 71 69 Respiratory Rate Blood Pressure 163/77 O2 Sat by Pulse 99 99 Oximetry 12/05/18 12/05/18 12/05/18 18:59 19:00 19:05 Temperature Pulse Rate 77 74 74 Respiratory Rate Blood Pressure 161/75 O2 Sat by Pulse 99 99 Oximetry 12/05/18 12/05/18 12/05/18 19:10 19:15 19:20 Temperature Pulse Rate 73 77 89 Respiratory Rate Blood Pressure 186/89 O2 Sat by Pulse 99 100 100 Oximetry 12/05/18 12/05/18 12/05/18 19:25 19:29 19:30 Temperature Pulse Rate 71 68 70 Respiratory Rate Blood Pressure 161/76 O2 Sat by Pulse 99 99 Oximetry 12/05/18 12/05/18 12/05/18 19:35 19:40 19:45 Temperature Pulse Rate 71 69 83 Respiratory Rate Blood Pressure O2 Sat by Pulse 99 100 98 Oximetry 12/05/18 12/05/18 12/05/18 19:50 19:55 20:00 Temperature Pulse Rate 73 79 87 Respiratory Rate Blood Pressure 178/84 O2 Sat by Pulse 99 99 99 Oximetry - Exam Cardiovascular: Normal S1, Normal S2 Lungs: Clear to auscultation, Normal air movement Abdomen: Present: normal appearance, soft. Absent: distention, tenderness, guarding - Labs Labs: Abnormal Labs 12/03/18 12/03/18 12/03/18 12:03 12:28 12:28 WBC 13.6 H RBC 3.54 L Hgb 9.6 L Hct 29.0 L MCH 27 L Creatinine 0.6 L Magnesium Lactate Dehydrogenase 228 H Ur Specific [place] 1.039 H Urine WBC (Auto) 16.0 H Ur Total Protein 24 Hr Urine Total Protein 12/03/18 12/03/18 12/04/18 14:00 20:42 02:29 WBC RBC Hgb Hct MCH Creatinine Magnesium 3.10 H 4.00 H Lactate Dehydrogenase Ur Specific [place] Urine WBC (Auto) Ur Total Protein 24 Hr 2352.00 H Urine Total Protein 196 H 12/04/18 12/04/18 09:32 14:34 WBC RBC Hgb Hct MCH Creatinine Magnesium 4.20 H 4.70 H Lactate Dehydrogenase Ur Specific [place] Urine WBC (Auto) Ur Total Protein 24 Hr Urine Total Protein Laboratory Results - last 24 hr 12/05/18 12/05/18 08:12 17:24 Glucose Tolerance AST 21 ALT 14
[2018-12-05] MEDS ORDERED: LASIX IV ONE ×2 (23:00→23:19)
--- NOTE | 2018-12-05 23:18 | Consultation ---
History of Present Illness - Reason for Consult Consult date: 12/05/18 ab cxr - History of Present Illness 23-year-old woman, 31 weeks is being consulted for abnormal chest x-ray shows pulmonary edema versus pneumonitis. Patient complains of worsening lower extremity edema, shortness of breath, PND and orthopnea. Denies any cough, fever, chills Review of systems Constitutional: no weight loss, chills, fever Ears, eyes, nose, mouth and throat: no nasal congestion, no nasal discharge, no sinus pressure, no vision change, no red eye. Neck: No neck pain or rigidity. Cardiovascular: no palpitations, chest pain Respiratory: no cough, +shortness of breath Gastrointestinal: no hematochezia, abdominal pain Genitourinary : no frequency , no hematuria Musculoskeletal: no joint swelling or muscle ache Integumentary: no rash, no pruritis Neurological: no parathesias, no focal weakness Endocrine: no cold or heat intolerance, no polyuria or polydipsia Hematologic/Lymphatic: no easy bruising, no easy bleeding, no gland swelling Allergic/Immunologic: no urticaria, no angioedema. PAST MEDICAL HISTORY: PAST SURGICAL HISTORY: 3 SOCIAL HISTORY: Denies alcohol, drugs, tobacco FAMILY HISTORY: Hypertension Past History Social history: other (see HPI) Medications and Allergies Allergies Allergy/AdvReac Type Severity Reaction Status Date / Time No Known Allergies Allergy Verified 09/09/13 00:32 Home Medications Medication Instructions Recorded Confirmed Last Taken Type Ferrous Sulfate [Feosol 325 MG tab] 325 mg PO BID #60 tablet 12/06/18 Unknown Rx Ibuprofen [Motrin 800 MG tab] 800 mg PO Q6H PRN #30 tablet 12/06/18 Unknown Rx oxyCODONE /ACETAMINOPHEN [Percocet 1 - 2 tab PO Q4H PRN #30 tablet 12/06/18 Unknown Rx 5/325 mg] Labetalol HCl 300 mg PO BID #60 tablet 12/09/18 Unknown Rx Active Meds: Active Medications Acetaminophen (Tylenol) 1,000 mg PO Q6H PRN PRN Reason: Pain, Mild (1-3) Last Admin: 12/05/18 14:01 Dose: 1,000 mg Documented by: Calcium Carbonate/Glycine (Tums) 500 mg PO Q4H PRN PRN Reason: Indigestion Lactated Ringer's (Lactated Ringers) 1,000 mls @ 125 mls/hr IV DIRECT OZZIE Last Admin: 12/05/18 18:48 Dose: 125 mls/hr Documented by: Magnesium Sulfate (Magnesium Sulfate 40gm/1000ml) 40 gm in 1,000 mls @ 50 mls/hr IV DIRECT OZZIE Last Admin: 12/03/18 18:24 Dose: 2 gm/hr, 50 mls/hr Documented by: Labetalol HCl (Normodyne) 200 mg PO BID [facility] Last Admin: 12/05/18 21:05 Dose: 200 mg Documented by: Multivitamins/Iron/Calcium ( Vitamin) 1 each PO QDAY [facility] Last Admin: 12/05/18 10:02 Dose: 1 each Documented by: Zolpidem Tartrate (Ambien) 10 mg PO QHS PRN PRN Reason: Insomnia Last Admin: 12/03/18 23:31 Dose: 10 mg Documented by: Exam - Physical Exam Narrative exam: General Apperance: The patient lying in bed, breathing comfortable HEENT: Normocephalic, atraumatic. Pupils equally round and reactive to light, EOMI, no sclericterus or JVD or thyromegaly or nodule. , no carotid bruit, mucous membranes moist, no exudate or erythema Heart: S1-S2, regular is rhythm Lungs: Decreased breath sound at bases bilaterally, breathing comfortable Abdomen: Positive bowel sounds, soft, nontender, nondistended, no organomegaly Extremities: 2+ edema up to knees, no cyanosis clubbing Skin: no rash, nodule, warm and dry Neuro: cranial nerves 2-12 intact, speech is fluent, motor/sensory intact - Constitutional Vitals: Temp Pulse Resp BP Pulse Ox 98.5 F 64 18 178/86 99 12/05/18 20:13 12/05/18 21:41 12/05/18 20:13 12/05/18 21:38 12/05/18 21:41 Results - Labs CBC & Chem 7: 12/07/18 12:19 12/07/18 06:41 - Imaging and Cardiology Chest x-ray: report reviewed Assessment and Plan Assessment/Plan Patient with symptoms suggestive of CHF Start IV Lasix, check echo Check BMP now, hold iv fluid Will follow along with you
[2018-12-05] MEDS ORDERED: NACL 0.9% IV ONE (23:19)
[2018-12-06 00:57] LABS: BUN/Creatinine Ratio 19; Blood Urea Nitrogen 13 mg/dL (7-17); Calcium 7.8 mg/dL (8.4-10.2)
[2018-12-06 00:58] LABS: Hemolysis Index 3
--- NOTE | 2018-12-06 06:30 | Progress Note ---
Assessment and Plan Pt awake to be placed on EFM for NST Pt no longer c/o DARNELL, blurred vision, chest pain. Pt refused SCDs "I'm getting OOB." BPs 150-170/70-80. Pt received Lasix @[place] as per hospitalist She is collins for another dose @ 1000. Hospitalist recommendations and assessment: Patient with symptoms suggestive of CHF Start IV Lasix, check echo Check BMP now, hold iv fluid Will follow along with you RECOMMENDATIONS: [facility] 1. Given her gestational age we would recommend DELIVERY in the presence of any findings which would suggest SEVERE preeclampsia. 2. At present we recommend further hospitalization on the antepartum unit at [facility]. 3. TP 2352 Creatinine 0.6 4. In the presence of overt evidence of SEVERE preeclampsia we recommend delivery of this patient. 5. At 31 weeks gestation; it would appear that there is some benefit to an expectant management protocol to prolong gestation in order to improve outcome without increasing maternal morbidity. In a patient with MILD preeclampsia we recommend DELIVERY at 37 weeks. In a patient with SEVERE preeclampsia we recommend DELIVERY either AT DIAGNOSIS or at 34 weeks gestation. 6. The indications for discontinuation of expectant management and DELIVERY in this patient would include ANY of the following: * heart rate abnormalities, (ie, bradycardia , repetitive late or variable decelerations) * Thrombocytopenia * Hemolysis, * Elevation in liver function tests * Blood pressure that is very labile or poorly controlled with reasonable doses of intravenous labetalol * Symptoms of severe pre-eclampsia epigastric discomfort, headache, dizziness, blurred vision, RUQ pain, seizure. * Standard obstetrical indications * Patient is NOT a candidate for discharge. Subjective - Subjective Date of service: 12/06/18 ("I'm hot! I can't wear those blowup hose.") Principal diagnosis: IUP @ 31+6, mild pre-e, Insufficent C Patient reports: movement normal, no new complaints (denies DARNELL, visual changes or epigastric pain), no loss of fluid, no vaginal bleeding, no contractions Objective - Vital Signs Vital Signs: Vital Signs - 12hr 12/05/18 12/05/18 12/05/18 18:29 18:30 18:35 Temperature Pulse Rate 65 64 62 Respiratory Rate Blood Pressure 189/88 Blood Pressure [Left] O2 Sat by Pulse 99 100 Oximetry 12/05/18 12/05/1812/05/19 18:40 18:44 18:45 Temperature Pulse Rate 64 61 67 Respiratory Rate Blood Pressure 189/88 189/90 Blood Pressure [Left] O2 Sat by Pulse 99 100 Oximetry 12/05/18 12/05/18 12/05/18 18:50 18:51 18:55 Temperature Pulse Rate 71 71 69 Respiratory Rate Blood Pressure 163/77 Blood Pressure [Left] O2 Sat by Pulse 99 99 Oximetry 12/05/18 12/05/18 12/05/18 18:59 19:00 19:05 Temperature Pulse Rate 77 74 74 Respiratory Rate Blood Pressure 161/75 Blood Pressure [Left] O2 Sat by Pulse 99 99 Oximetry 12/05/18 12/05/18 12/05/18 19:10 19:15 19:20 Temperature Pulse Rate 73 77 89 Respiratory Rate Blood Pressure 186/89 Blood Pressure [Left] O2 Sat by Pulse 99 100 100 Oximetry 12/05/18 12/05/18 12/05/18 19:25 19:29 19:30 Temperature Pulse Rate 71 68 70 Respiratory Rate Blood Pressure 161/76 Blood Pressure [Left] O2 Sat by Pulse 99 99 Oximetry 12/05/18 12/05/18 12/05/18 19:35 19:40 19:45 Temperature Pulse Rate 71 69 83 Respiratory Rate Blood Pressure Blood Pressure [Left] O2 Sat by Pulse 99 100 98 Oximetry 12/05/18 12/05/18 12/05/18 19:50 19:55 20:00 Temperature Pulse Rate 73 79 87 Respiratory Rate Blood Pressure 178/84 Blood Pressure [Left] O2 Sat by Pulse 99 99 99 Oximetry 12/05/18 12/05/18 12/05/18 20:05 20:10 20:13 Temperature 98.5 F Pulse Rate 97 H 99 H 78 Respiratory 18 Rate Blood Pressure Blood Pressure 162/78 [Left] O2 Sat by Pulse 99 98 Oximetry 12/05/18 12/05/18 12/05/18 20:14 20:15 20:20 Temperature Pulse Rate 77 89 72 Respiratory Rate Blood Pressure 162/78 Blood Pressure [Left] O2 Sat by Pulse 98 98 Oximetry 12/05/18 12/05/18 12/05/18 20:25 20:29 20:30 Temperature Pulse Rate 71 76 77 Respiratory Rate Blood Pressure 159/76 Blood Pressure [Left] O2 Sat by Pulse 99 99 Oximetry 12/05/18 12/05/18 12/05/18 20:35 20:40 20:45 Temperature Pulse Rate 83 74 74 Respiratory Rate Blood Pressure Blood Pressure [Left] O2 Sat by Pulse 99 98 98 Oximetry 12/05/18 12/05/18 12/05/18 20:50 20:55 21:00 Temperature Pulse Rate 74 71 74 Respiratory Rate Blood Pressure Blood Pressure [Left] O2 Sat by Pulse 98 98 99 Oximetry 12/05/18 12/05/18 12/05/18 21:05 21:10 21:15 Temperature Pulse Rate 74 69 70 Respiratory Rate Blood Pressure 159/76 Blood Pressure [Left] O2 Sat by Pulse 100 97 98 Oximetry 12/05/18 12/05/18 12/05/18 21:20 21:25 21:31 Temperature Pulse Rate 70 65 65 Respiratory Rate Blood Pressure Blood Pressure [Left] O2 Sat by Pulse 97 99 99 Oximetry 12/05/18 12/05/18 12/05/18 21:36 21:38 21:41 Temperature Pulse Rate 62 62 64 Respiratory Rate Blood Pressure 178/86 Blood Pressure [Left] O2 Sat by Pulse 98 99 Oximetry 12/06/18 12/06/18 12/06/18 00:08 00:11 00:12 Temperature 98.2 F Pulse Rate 59 L 63 59 L Respiratory 18 Rate Blood Pressure 176/81 157/70 Blood Pressure 157/70 [Left] O2 Sat by Pulse Oximetry 12/06/18 12/06/18 05:48 05:50 Temperature 98.1 F Pulse Rate 78 78 Respiratory 18 Rate Blood Pressure 142/66 Blood Pressure 142/66 [Left] O2 Sat by Pulse Oximetry - Exam Breasts: deferred Cardiovascular: Regular rate Lungs: Clear to auscultation (NST in progress), Normal air movement Abdomen: Present: normal appearance, soft. Absent: distention, tenderness Uterus: Present: normal FHR: auscultation normal, category 1 (minimal variablity) Uterine Contraction Pattern: Irregular Uterine Tone Measurement Phase: Resting Uterine Contraction Intensity: Mild Extremities: edema (2+ pitting below knee bilateral) Deep Tendon Reflex Grade: Normal but brisk +3 - Labs Labs: Abnormal Labs 12/03/18 12/03/18 12/03/18 12:03 12:28 12:28 WBC 13.6 H RBC 3.54 L Hgb 9.6 L Hct 29.0 L MCH 27 L Potassium Creatinine 0.6 L Glucose Calcium Magnesium Lactate Dehydrogenase 228 H Ur Specific [place] 1.039 H Urine WBC (Auto) 16.0 H Ur Total Protein 24 Hr Urine Total Protein 12/03/18 12/03/18 12/04/18 14:00 20:42 02:29 WBC RBC Hgb Hct MCH Potassium Creatinine Glucose Calcium Magnesium 3.10 H 4.00 H Lactate Dehydrogenase Ur Specific [place] Urine WBC (Auto) Ur Total Protein 24 Hr 2352.00 H Urine Total Protein 196 H 12/04/18 12/04/18 12/06/18 09:32 14:34 00:03 WBC RBC Hgb Hct MCH Potassium 3.5 L Creatinine Glucose 105 H Calcium 7.8 L Magnesium 4.20 H 4.70 H Lactate Dehydrogenase Ur Specific [place] Urine WBC (Auto) Ur Total Protein 24 Hr Urine Total Protein Laboratory Results - last 24 hr 12/05/18 12/05/18 12/06/18 08:12 17:24 00:03 Sodium 140 Potassium 3.5 L Chloride 104.7 Carbon Dioxide 22 Anion Gap 17 BUN 13 Creatinine 0.7 Estimated GFR > 60 BUN/Creatinine Ratio 19 Glucose 105 H Glucose Tolerance Calcium 7.8 L AST 21 ALT 14
[2018-12-06] MEDS ORDERED: APRESOLINE ONE (09:43)
--- NOTE | 2018-12-06 09:43 | Ultrasound Report ---
ULTRASOUND ABDOMEN LIMITED: TECHNIQUE: Transabdominal ultrasound with color Doppler interrogation. HISTORY: Upper abdominal pain. COMPARISON: none. FINDINGS: LIVER: Normal. BILIARY SYSTEM: Trace sludge is suspected in the gallbladder. No evidence for shadowing gallstones, wall thickening or abnormal dilatation. PANCREAS: Normal. RIGHT KIDNEY: Normal. PROXIMAL AORTA: Normal. ASCITES: None. IMPRESSION: Trace sludge in the gallbladder.
[2018-12-06] MEDS: PRENATAL VITAMIN PO SCH (09:54)
[2018-12-06] MEDS ORDERED: LASIX IV SCH (10:00)
[2018-12-06] MEDS: NORMODYNE PO SCH ×2 (10:43→13:02)
--- NOTE | 2018-12-06 11:44 | Progress Note ---
Assessment and Plan Assessment and plan: ? Peripartum cardiomyopathy. Consider cardiology consultation. Await echocardiogram results. Continue diuresis. Chest pain. CXR shows cardiomegaly, viral pneumonitis vs pulmonary edema 32 weeks gestational . Her OB Mild preeclampsia. Continue current regimen per OB History Interval history: No new issues overnight. Hospitalist Physical - Constitutional Vitals: Temp Pulse Resp BP Pulse Ox 98.1 F 84 18 174/98 97 12/06/18 05:48 12/06/18 10:43 12/06/18 05:48 12/06/18 10:43 12/06/18 10:34 General appearance: Present: no acute distress, well-nourished - EENT Eyes: Present: PERRL, EOM intact ENT: hearing intact, clear oral mucosa, dentition normal - Neck Neck: Present: supple, normal ROM - Respiratory Respiratory effort: normal Respiratory: bilateral: CTA - Cardiovascular Rhythm: regular Heart Sounds: Present: S1 & S2. Absent: gallop, rub - Extremities Extremities: no ischemia, No edema, Full ROM - Abdominal General gastrointestinal: soft, non-tender, non-distended, normal bowel sounds - Integumentary Integumentary: Present: clear, warm, dry - Neurologic Neurologic: CNII-XII intact, moves all extremities Results - Labs CBC & Chem 7: 12/03/18 12:28 12/06/18 00:03 Labs: Laboratory Last Values WBC 13.6 K/mm3 (4.5-11.0) H 12/03/18 12:28 RBC 3.54 M/mm3 (3.65-5.03) L 12/03/18 12:28 Hgb 9.6 gm/dl (10.1-14.3) L 12/03/18 12:28 Hct 29.0 % (30.3-42.9) L 12/03/18 12:28 MCV 82 fl (79-97) 12/03/18 12:28 MCH 27 pg (28-32) L 12/03/18 12:28 MCHC 33 % (30-34) 12/03/18 12:28 RDW 15.1 % (13.2-15.2) 12/03/18 12:28 Plt Count 214 K/mm3 (140-440) 12/03/18 12:28 Sickle Cell Screen Negative (Negative) 12/04/18 09:32 Sodium 140 mmol/L (137-145) 12/06/18 00:03 Potassium 3.5 mmol/L (3.6-5.0) L 12/06/18 00:03 Chloride 104.7 mmol/L (98-107) 12/06/18 00:03 Carbon Dioxide 22 mmol/L (22-30) 12/06/18 00:03 Anion Gap 17 mmol/L 12/06/18 00:03 BUN 13 mg/dL (7-17) 12/06/18 00:03 Creatinine 0.7 mg/dL (0.7-1.2) 12/06/18 00:03 Estimated GFR > 60 ml/min 12/06/18 00:03 BUN/Creatinine Ratio 19 % 12/06/18 00:03 Glucose 105 mg/dL (65-100) H 12/06/18 00:03 Glucose Tolerance 12/05/18 08:12 Uric Acid 5.1 mg/dL (3.5-7.6) 12/03/18 12:28 Calcium 7.8 mg/dL (8.4-10.2) L 12/06/18 00:03 Magnesium 4.70 mg/dL (1.7-2.3) H 12/04/18 14:34 AST 21 units/L (5-40) 12/05/18 17:24 ALT 14 units/L (7-56) 12/05/18 17:24 Lactate Dehydrogenase 228 units/L (91-180) H 12/03/18 12:28 Urine Color [place] (Yellow) 12/03/18 12:03 Urine Turbidity Slightly-cloudy (Clear) 12/03/18 12:03 Urine pH 6.0 (5.0-7.0) 12/03/18 12:03 Ur Specific [place] 1.039 (1.003-1.030) H 12/03/18 12:03 Urine Protein >500 mg/dL (Negative) 12/03/18 12:03 Urine Glucose (UA) Neg mg/dL (Negative) 12/03/18 12:03 Urine Ketones Tr mg/dL (Negative) 12/03/18 12:03 Urine Blood Neg (Negative) 12/03/18 12:03 Urine Nitrite Neg (Negative) 12/03/18 12:03 Urine Bilirubin Neg (Negative) 12/03/18 12:03 Urine Urobilinogen 2.0 mg/dL (<2.0) 12/03/18 12:03 Ur Leukocyte Esterase Sm (Negative) 12/03/18 12:03 Urine WBC (Auto) 16.0 /HPF (0.0-6.0) H 12/03/18 12:03 Urine RBC (Auto) 4.0 /HPF (0.0-6.0) 12/03/18 12:03 U Epithel Cells (Auto) 9.0 /HPF (0-13.0) 12/03/18 12:03 Urine Mucus 3+ /HPF 12/03/18 12:03 Urine Total Volume 1200 ml 12/03/18 14:00 Ur Total Protein 24 Hr 2352.00 mg/dL (2-200) H 12/03/18 14:00 Urine Total Protein 196 mg/dL (5-11.8) H 12/03/18 14:00 Urine Opiates Screen Presumptive negative 12/03/18 18:10 Urine Methadone Screen Presumptive negative 12/03/18 18:10 Ur Barbiturates Screen Presumptive negative 12/03/18 18:10 Ur Phencyclidine Scrn Presumptive negative 12/03/18 18:10 Ur Amphetamines Screen Presumptive negative 12/03/18 18:10 U Benzodiazepines Scrn Presumptive negative 12/03/18 18:10 Urine Cocaine Screen Presumptive negative 12/03/18 18:10 U Marijuana (THC) Screen Presumptive negative 12/03/18 18:10 Drugs of Abuse Note Disclamer 12/03/18 18:10 RPR Nonreactive (Nonreactive) 12/04/18 09:32 Hep Bs Antigen Non-reactive (Negative) 12/04/18 09:32 Hepatitis C Antibody Non-reactive (NonReactive) 12/04/18 09:32 HIV 1&2 Antibody Rapid Non react (Non React) 12/04/18 09:32 HIV P24 Antigen Non react (Non React) 12/04/18 09:32 Rubella IgG Antibody Immune (Immune) 12/04/18 09:32 Blood Type O POSITIVE 12/04/18 09:32 Antibody Screen Negative 12/04/18 09:32 Active Medications - Current Medications Current Medications: Generic Name Dose Route Start Last Admin Trade Name Freq PRN Reason Stop Dose Admin Acetaminophen 1,000 mg 12/05/18 13:43 12/05/18 14:01 Tylenol PO 1,000 mg Q6H PRN Administration Pain, Mild (1-3) Calcium Carbonate/Glycine 500 mg 12/05/18 13:23 Tums PO Q4H PRN Indigestion Furosemide 20 mg 12/06/18 10:00 12/06/18 09:57 Lasix IV 20 mg QDAY OZZIE Administration Magnesium Sulfate 40 gm in 1,000 mls @ 50 mls/hr 12/03/18 18:00 12/03/18 18:24 Magnesium Sulfate 40gm/1000ml IV 2 gm/hr DIRECT OZZIE 50 mls/hr Administration 2 GM/HR Labetalol HCl 200 mg 12/03/18 20:55 12/06/18 10:43 Normodyne PO 200 mg BID OZZIE Administration Multivitamins/Iron/Calcium 1 each 12/03/18 15:00 12/06/18 09:54 Vitamin PO 1 each QDAY OZZIE Administration Zolpidem Tartrate 10 mg 12/03/18 23:07 12/03/18 23:31 Ambien PO 10 mg QHS PRN Administration Insomnia
--- NOTE | 2018-12-06 13:39 | Progress Note ---
<SARA CASTLE - Last Filed: 12/06/18 14:33> Assessment and Plan A) - 31. 6 weeks - Insufficent PNC ( only one appointment with OB provider ) - 11/26/18 [facility] US EGA ( AUA) 30.3 weeks with AIXA 02/01/19 - 11/26/18 [facility] BPP 8/8 - Severe PreEclampsia with severe features - Severe BP uncontrolled with new onset of severe headaches and SOB - Chest Xray with concern for ? cardiomegaly , mild pulmonary edema - Hospitalist with concern for CHF - O2 sat 99% under RA - No BNP - Maternal ECHO estimated ejection fraction of 55-60% - Continued severe elevated BP , edema, labored breathing , diminished breath sounds lower lobe under Labetalol and S/P IV Lasix and Apresoline more likely pulmonary edema - S/P steroid for FLM - S/P MgSO4 for neuroprotection - No prior diagnosis for CHTN - Recent ( 12/05/18) dx of GDM with 1 GTT of 227 md/dl however GTT was obtained S/P steroid for FLM - Previous C/S times 3 P) -Continuous pulse Ox -Continuous monitoring - Repeat labs to inc BNP and PIH labs -Obtain NICU consult -Obtain previously recommended Cardio consult - I&O's - Increase Labetalol 400 mg PO BID - Due to Severe PreEclampsia with new onset of severe features to inc sxs consistent with Pulmonary edema, unctontrolled HTN and new DARNELL remote from term, DELIVERY is recommended - NPO until delivery - Notify anesthesia of medical concerns - Placenta to pathology - S/P delivery MgSO4 for seizure - Keep BP controlled < 160/110 - may continue with Lasix as needed after the delivery - Address and management blood pressure - Strict I & O - With continued uncontrolled BP address with the hospitalist DR Goins discussed findings with recommendation for delivery with Dr. Osorio Subjective - Subjective Principal diagnosis: IUP @ 31+6, mild pre-e, Insufficent PNC Patient reports: movement normal, other (Patient reports continued SOB , edema , and new onset of headaches . Patient denies prior history of HTN and prior history of PreEclampsia . Denies epigastric pain , visual changes , chest pain , VB , and DFM . Patient is S/P IV Apresoline , S/P evaluation by hospitalist , and IV Lasix with continued elevated BP and SOB . Reports new onset of headache Patient currently under Labetalol 200 mg PO BID. She reports " urinating a lot " No documentation of I&O's ), no new complaints (denies DARNELL, visual changes or epigastric pain), no loss of fluid, no vaginal bleeding, no contractions Objective - Vital Signs Vital Signs: Vital Signs - 12hr 12/06/18 12/06/18 12/06/18 05:48 05:50 09:47 Temperature 98.1 F 98.8 F Pulse Rate 78 78 Respiratory 18 18 Rate Blood Pressure 142/66 Blood Pressure 142/66 [Left] O2 Sat by Pulse Oximetry 12/06/18 12/06/18 12/06/18 09:50 09:51 09:55 Temperature Pulse Rate 63 59 L 58 L Respiratory Rate Blood Pressure 185/91 185/91 Blood Pressure [Left] O2 Sat by Pulse 97 97 Oximetry 12/06/18 12/06/18 12/06/18 10:10 10:15 10:24 Temperature Pulse Rate 76 84 86 Respiratory Rate Blood Pressure Blood Pressure [Left] O2 Sat by Pulse 97 97 97 Oximetry 12/06/18 12/06/18 12/06/18 10:29 10:34 10:43 Temperature Pulse Rate 85 90 84 Respiratory Rate Blood Pressure 174/98 Blood Pressure [Left] O2 Sat by Pulse 97 97 Oximetry 12/06/18 12/06/18 12/06/18 12:22 12:23 12:27 Temperature Pulse Rate 92 H 92 H 87 Respiratory Rate Blood Pressure 162/85 Blood Pressure [Left] O2 Sat by Pulse 32 L 99 Oximetry 12/06/18 12/06/18 12/06/18 12:28 12:33 13:02 Temperature Pulse Rate 95 H 84 93 H Respiratory Rate Blood Pressure 153/75 Blood Pressure [Left] O2 Sat by Pulse 99 99 Oximetry 12/06/18 13:14 Temperature Pulse Rate 93 H Respiratory Rate Blood Pressure 153/75 Blood Pressure [Left] O2 Sat by Pulse Oximetry - Exam Breasts: deferred Cardiovascular: Regular rate Lungs: Other (dimished breath sounds @ lower base ) Abdomen: Present: other (gravid ). Absent: tenderness, guarding Uterus: Present: other. Absent: tenderness FHR: category 1 (patient was not on continuous monitoring during consult prior FHR - CAT 1 for 31 weeks ) Uterine Contraction Monitor Mode: Palpation (no contraction palpable) Extremities: edema (+1 LLE) Deep Tendon Reflex Grade: Normal but brisk +3 - Labs Labs: Abnormal Labs 12/03/18 12/03/18 12/03/18 12:03 12:28 12:28 WBC 13.6 H RBC 3.54 L Hgb 9.6 L Hct 29.0 L MCH 27 L Potassium Creatinine 0.6 L Glucose Calcium Magnesium Lactate Dehydrogenase 228 H Ur Specific [place] 1.039 H Urine WBC (Auto) 16.0 H Ur Total Protein 24 Hr Urine Total Protein 12/03/18 12/03/18 12/04/18 14:00 20:42 02:29 WBC RBC Hgb Hct MCH Potassium Creatinine Glucose Calcium Magnesium 3.10 H 4.00 H Lactate Dehydrogenase Ur Specific [place] Urine WBC (Auto) Ur Total Protein 24 Hr 2352.00 H Urine Total Protein 196 H 12/04/18 12/04/18 12/06/18 09:32 14:34 00:03 WBC RBC Hgb Hct MCH Potassium 3.5 L Creatinine Glucose 105 H Calcium 7.8 L Magnesium 4.20 H 4.70 H Lactate Dehydrogenase Ur Specific [place] Urine WBC (Auto) Ur Total Protein 24 Hr Urine Total Protein Laboratory Results - last 24 hr 12/05/18 12/06/18 17:24 00:03 Sodium 140 Potassium 3.5 L Chloride 104.7 Carbon Dioxide 22 Anion Gap 17 BUN 13 Creatinine 0.7 Estimated GFR > 60 BUN/Creatinine Ratio 19 Glucose 105 H Calcium 7.8 L AST 21 ALT 14 - Results US- obstetric: report reviewed (see [facility] report for maternal ECHO, ABD US , and chest X ray for full report ) <ALBERT CAM - Last Filed: 12/06/18 14:44> Assessment and Plan I have seen the patient, looked over the labs, radiology and vitals signs. I agree with the above note as written and would recommend delivery at this time for uncontrolled HTN, pulm edema, new onset neurologic features. I have spoken with Dr Osorio about the recommendation, please call with any acute concerns to [facility]. Objective - Vital Signs Vital Signs: Vital Signs - 12hr 12/06/18 12/06/18 12/06/18 05:48 05:50 09:47 Temperature 98.1 F 98.8 F Pulse Rate 78 78 Respiratory 18 18 Rate Blood Pressure 142/66 Blood Pressure 142/66 [Left] O2 Sat by Pulse Oximetry 12/06/18 12/06/18 12/06/18 09:50 09:51 09:55 Temperature Pulse Rate 63 59 L 58 L Respiratory Rate Blood Pressure 185/91 185/91 Blood Pressure [Left] O2 Sat by Pulse 97 97 Oximetry 12/06/18 12/06/18 12/06/18 10:10 10:15 10:24 Temperature Pulse Rate 76 84 86 Respiratory Rate Blood Pressure Blood Pressure [Left] O2 Sat by Pulse 97 97 97 Oximetry 12/06/18 12/06/18 12/06/18 10:29 10:34 10:43 Temperature Pulse Rate 85 90 84 Respiratory Rate Blood Pressure 174/98 Blood Pressure [Left] O2 Sat by Pulse 97 97 Oximetry 12/06/18 12/06/18 12/06/18 12:22 12:23 12:27 Temperature Pulse Rate 92 H 92 H 87 Respiratory Rate Blood Pressure 162/85 Blood Pressure [Left] O2 Sat by Pulse 32 L 99 Oximetry 12/06/18 12/06/18 12/06/18 12:28 12:33 13:02 Temperature Pulse Rate 95 H 84 93 H Respiratory Rate Blood Pressure 153/75 Blood Pressure [Left] O2 Sat by Pulse 99 99 Oximetry 12/06/18 12/06/18 12/06/18 13:14 14:22 14:29 Temperature Pulse Rate 93 H 80 85 Respiratory Rate Blood Pressure 153/75 174/88 135/67 Blood Pressure [Left] O2 Sat by Pulse Oximetry - Labs Labs: Abnormal Labs 12/03/18 12/03/18 12/03/18 12:03 12:28 12:28 WBC 13.6 H RBC 3.54 L Hgb 9.6 L Hct 29.0 L MCH 27 L Potassium Creatinine 0.6 L Glucose Calcium Magnesium Lactate Dehydrogenase 228 H Ur Specific [place] 1.039 H Urine WBC (Auto) 16.0 H Ur Total Protein 24 Hr Urine Total Protein 12/03/18 12/03/18 12/04/18 14:00 20:42 02:29 WBC RBC Hgb Hct MCH Potassium Creatinine Glucose Calcium Magnesium 3.10 H 4.00 H Lactate Dehydrogenase Ur Specific [place] Urine WBC (Auto) Ur Total Protein 24 Hr 2352.00 H Urine Total Protein 196 H 12/04/18 12/04/18 12/06/18 09:32 14:34 00:03 WBC RBC Hgb Hct MCH Potassium 3.5 L Creatinine Glucose 105 H Calcium 7.8 L Magnesium 4.20 H 4.70 H Lactate Dehydrogenase Ur Specific [place] Urine WBC (Auto) Ur Total Protein 24 Hr Urine Total Protein Laboratory Results - last 24 hr 12/05/18 12/06/18 17:24 00:03 Sodium 140 Potassium 3.5 L Chloride 104.7 Carbon Dioxide 22 Anion Gap 17 BUN 13 Creatinine 0.7 Estimated GFR > 60 BUN/Creatinine Ratio 19 Glucose 105 H Calcium 7.8 L AST 21 ALT 14
[2018-12-06] MEDS ORDERED: LACTATED RINGERS 1,000 ML ONE ×3 (13:40→22:16)
--- NOTE | 2018-12-06 13:55 | Event Note ---
Date: 12/06/18 Discussions with our consultants from [facility], patient is classified as severe preeclampsia requiring delivery. Patient is to be delivered by section this afternoon. Discussed this finding with patient who had already discussed with the perinatologist. Patient informed the risks of the surgery include bleeding possibly bleeding heavy enough to require blood transfusion, infection possible damage to bowel bladder ureter. All questions answered. Patient agrees to proceed. Patient declined tubal ligation and desires Nexplanon .
[2018-12-06] MEDS ORDERED: PITOCin/NS 20 UNIT/1000ML DRIP 20 UNITS/1,000 ML BAG IV SCH (14:00)
--- NOTE | 2018-12-06 15:11 | Consultation ---
Consult Note - Parent Education I met with parent(s) and discussed the following:: Need for NICU admission, Poss ible need for intubation and surfactant or other resp support, Temperature regulation, Possible need for IV fluids/TPN and IV antibiotics, Possible need for umbilical lines, Importance of providing breast milk & encouraged pumping aft delivery, Donor breast milk if baby meets criteria after , Slow feeding advancement and monitoring of tolerance. NG/OG feeds, Data for survival & survival without significant co-morbidities Parent(s) demonstrated understanding of all the information:: Yes Additional Comment: 23 year old at 31w6d gestation admitted for severe PIH with suspected pulmonary edema Assessment and Plan - Assessment Gestation:: 31 (weeks) Baby's gender: Female - Plan Plan: Agree with Mag & steroids Will attend delivery Please call NICU with questions
[2018-12-06 15:58] LABS: Hematocrit 27.3 % (30.3-42.9); Hemoglobin 8.9 gm/dl (10.1-14.3); Mean Corpuscular HGB Conc 33 % (30-34); Mean Corpuscular Volume 82 fl (79-97); Platelet Count 223 K/mm3 (140-440); Red Blood Count 3.32 M/mm3 (3.65-5.03); Red Cell Distribution Width 15.4 % (13.2-15.2)
[2018-12-06] MEDS ORDERED: LACTATED RINGERS 1,000 ML IV SCH (16:00)
[2018-12-06] MEDS ORDERED: REGLAN IV SCH (17:00)
[2018-12-06] MEDS ORDERED: PEPCID IV SCH (17:00)
[2018-12-06] MEDS ORDERED: BICITRA PO SCH (17:00)
[2018-12-06] MEDS ORDERED: ANCEF/STERILE WATER 2 GM/20 ML 2 GM/20 ML SYRINGE IV NR (17:30)
[2018-12-06] MEDS ORDERED: NARCAN 0.4 MG/1 ML IV PRN (19:23)
[2018-12-06] MEDS ORDERED: DILAUDID IV PRN (19:23)
[2018-12-06] MEDS ORDERED: PHENERGAN PR PRN (19:23)
[2018-12-06] MEDS ORDERED: PHENERGAN PO PRN (19:23)
[2018-12-06] MEDS ORDERED: ZOFRAN IV PRN (19:23)
--- NOTE | 2018-12-06 19:23 | Anesthesia Day of Surgery ---
Anesthesia Day of Surgery - Day of Surgery Patient Examined: Yes Patient H&P Reviewed: Yes Patient is NPO: Yes Beta Blockers: Yes Cardiac Clearance: No Pulmonary Clearance: No Musa's Test: N/A
--- NOTE | 2018-12-06 19:23 | Anesthesia Consultation ---
Anesthesia Consult and Med Hx - Airway Anesthetic Teeth Evaluation: Good ROM Head & Neck: Adequate Mental/Hyoid Distance: Adequate Mallampati Class: Class I Intubation Access Assessment: Good - Pulmonary Exam CTA: Yes - Cardiac Exam Cardiac Exam: RRR - Pre-Operative Health Status ASA Pre-Surgery Classification: ASA2 Proposed Anesthetic Plan: Spinal - Pulmonary Hx Smoking: No Hx Asthma: No COPD: No Hx Pneumonia: No - Cardiovascular System Hx Hypertension: No Hx Coronary Artery Disease: No Hx Heart Attack/AMI: No Hx Angina: No - Central Nervous System Hx Seizures: No CVA: No Hx Back Pain: Yes (hx back spasms) Hx Psychiatric Problems: No - Gastrointestinal Hx Gastroesophageal Reflux Disease: No - Endocrine Hx Renal Disease: No Hx End Stage Renal Disease: No Hx Liver Disease: No Hx Non-Insulin Dependent Diabetes: No Hx Thyroid Disease: No Hx Hypothyroidism: No Hx Hyperthyroidism: No - Hematic Hx Anemia: No Hx Sickle Cell Disease: No - Other Systems Hx Alcohol Use: No Hx Cancer: No
[2018-12-06] MEDS: MAGNESIUM SULFATE 40GM/1000ML 40 GM/1,000 ML BAG IV SCH (19:24)
[2018-12-06] MEDS ORDERED: SODIUM CHLORIDE FLUSH SYRINGE 10 ML IV NR (20:00)
[2018-12-06] MEDS ORDERED: SUBLIMAZE ONE (20:56)
[2018-12-06] MEDS ORDERED: ZOFRAN ONE (20:56)
[2018-12-06] MEDS ORDERED: NEO SYNEPHRINE/NS Syringe(OR USE) IV ONE (21:09)
[2018-12-06] MEDS ORDERED: WATER FOR IRRIG STERILE IR ONE (21:10)
[2018-12-06] MEDS ORDERED: NACL 0.9% IR ONE (21:10)
[2018-12-06] MEDS ORDERED: TORADOL ONE (21:34)
[2018-12-06] MEDS ORDERED: DILAUDID ONE ×3 (21:46→21:49)
[2018-12-06] MEDS ORDERED: VERSED ONE (21:47)
[2018-12-06] MEDS ORDERED: DIPRIVAN 10 MG/ML IV ONE ×2 (21:57→22:21)
[2018-12-06] MEDS ORDERED: XYLOCAINE CARDIAC IV ONE (21:58)
--- NOTE | 2018-12-06 22:58 | Operative Report ---
Operative Report Operative Report: Date of procedure: 12/06/2018 Pre-operative diagnosis:. at 31 weeks and 6 days with severe preeclam psia and previous sections 3 Post-operative diagnosis: Same plus pelvic adhesive disease Procedure name(s): Repeat low transverse section lysis of adhesions Surgeon: Abhinav Osorio MD Human Resource Analyst: Anesthesia: Spinal EBL: 600 mL Complications: None Findings: Patient with thick adhesions between the anterior abdominal wall and uterus and rectus muscles. Female infant weight 3 lbs. 10 oz. Apgars 8 at 1 minute and 9 at 5 minutes Specimen(s): Placenta Procedure: The patient was brought to the operating room. A spinal was placed without any complications. She was then placed in left lateral tilt. Prepped and draped in the usual sterile manner. After testing for adequate anesthesia level, a Pfannenstiel incision was made through her previous scar. This in cision was taken down to the fascia. The fascia was then nicked in the midline. This incision was extended out laterally with Donald scissors very thick scar. The fascia was then sharply and bluntly from the underlying rectus muscles through thick scar to the anterior uterus. The rectus muscles were bluntly and sharply . The peritoneum was then entered with the coal equipment operator's fingers. This incision was spread vertically with care not to damage the bladder below. Adhesions were also taken down in order to visualize the anterior uterus. The bladder flap was then formed sharply and bluntly with Metzenbaum scissors. The Emeterio self-retaining tractor was then placed without any difficulty. A transverse incision was made in lower uterine segment. This incision was extended laterally with the operators fingers. The amniotic sac was then entered bluntly with the coal equipment operator's fingers. The was delivered from the vertex position. Bulb suction on the mother's abdomen. Cord was double clamped and cut. The infant was then passed to the nursery personnel who were in attendance. The above scores were given by the nursery personnel. The placenta was then bluntly removed. The uterus was then externalized and wiped clean the remaining products. The uterine incision was closed in layers. The first incision was closed in a locking manner using 0 Vicryl. This was followed by imbricating stitch also with 0 Vicryl. This closure was hemostatic after several [id number] sutures. The bladder flap was copiously irrigated and found to be hemostatic. The pelvis was copiously irrigated and found to be hemostatic. The uterus was then placed back to the patient's abdomen. Surgicel was placed over the uterine incision. The retractors were removed. The rectus muscles were inspected and found to be hemostatic after additional sutures and Bovie. Surgicel was placed over the rectus muscles. The fascia was then closed in a running manner using 0 Vicryl. This incision was hemostatic irrigation Bovie. The skin was reapproximated with 4-0 Vicryl subcuticularly. The patient tolerated procedure well. Her urine was clear. The was admitted to the intensive care nursery. The patient was accompanied to recovery room in good condition. Instrument count correct 3
--- NOTE | 2018-12-06 23:03 | Post Anesthesia Evaluation ---
- Post Anesthesia Evaluation Patient Participated: Yes Airway Patent: Yes Stable Respiratory Function: Yes Nausea/Vomiting: No Temp > 96.8F: Yes Pain Manageable: Yes Adequeate Hydration: Yes Anesthesia Complications: No Block Receding Appropriately: Yes Patient on Ventilator: No
[2018-12-07] MEDS: NORMODYNE PO SCH ×3 (01:05→21:31)
[2018-12-07] MEDS ORDERED: LANSINOH TP PRN (01:43)
[2018-12-07] MEDS ORDERED: NARCAN 0.4 MG/1 ML IV PRN (01:43)
[2018-12-07] MEDS ORDERED: MYLICON PO PRN (01:43)
[2018-12-07] MEDS ORDERED: SODIUM CHLORIDE FLUSH SYRINGE 10 ML IV NR (01:43)
[2018-12-07] MEDS ORDERED: TUCKS PAD TP PRN (01:43)
[2018-12-07] MEDS ORDERED: PITOCin/NS 20 UNIT/1000ML DRIP 20 UNITS/1,000 ML BAG IV SCH (01:43)
[2018-12-07] MEDS: TORADOL IV SCH ×4 (03:38→21:30)
[2018-12-07] MEDS: ANCEF/NS 1 GM/50 ML 1 GM/50 ML BAG IV SCH ×2 (03:52→12:47)
[2018-12-07] MEDS: NORCO 5/325 PO PRN ×4 (05:19→20:55)
[2018-12-07 07:02] LABS: Basophils # (Auto) 0.2 K/mm3 (0.0-0.1); Basophils % (Auto) 0.9 % (0.0-1.8); Eosinophils # (Auto) 0.1 K/mm3 (0.0-0.4); Eosinophils % (Auto) 0.3 % (0.0-4.3); Hematocrit 27.1 % (30.3-42.9); Hemoglobin 8.9 gm/dl (10.1-14.3); Lymphocytes # (Auto) 2.1 K/mm3 (1.2-5.4); Lymphocytes % (Auto) 11.4 % (13.4-35.0); Mean Corpuscular HGB Conc 33 % (30-34); Mean Corpuscular Volume 83 fl (79-97); Monocytes % (Auto) 5.7 % (0.0-7.3); Platelet Count 203 K/mm3 (140-440); Red Blood Count 3.27 M/mm3 (3.65-5.03); Red Cell Distribution Width 15.4 % (13.2-15.2)
[2018-12-07 07:24] LABS: BUN/Creatinine Ratio 25; Blood Urea Nitrogen 15 mg/dL (7-17); Calcium 7.4 mg/dL (8.4-10.2); Hemolysis Index 147
--- NOTE | 2018-12-07 07:38 | Progress Note ---
Assessment and Plan Patient resting, c/o discomfort at incision site. wearing SCDs, Dressing D&I. lochia scant, fundus firm. afebrile. H&H 8.9/27.1, b/p 130-160's/70-90's. reports chest pain improved. Pt denies Calderon, visual changes or epigastric pain. Encouraged ISS use 10x an hour while awake. Advance diet as tolerated. Mag sulfate to continue x24h post delivery. Continue current management. - Patient Problems (1) Insufficient care in third trimester Current Visit: Yes Status: Acute (2) delivery delivered Current Visit: Yes Status: Acute (3) Severe pre-eclampsia Current Visit: Yes Status: Acute Qualifiers: Trimester: unspecified trimester Qualified Code(s): O14.10 - Severe pre- eclampsia, unspecified trimester Subjective - Subjective Date of service: 12/07/18 Principal diagnosis: postop day 1 s/p repeat c/s for severe pre-e Patient reports: pain well controlled, no flatus, no nauseated [place]: in NICU Objective - Vital Signs Latest vital signs: Vital Signs Temp Pulse Resp BP BP BP Pulse Ox 12/07/18 07:29 74 96 12/07/18 07:24 68 96 12/07/18 07:23 66 163/95 12/07/18 07:19 79 96 12/07/18 07:17 73 94 12/07/18 07:14 71 94 12/07/18 07:11 74 94 12/07/18 07:09 89 92 12/07/18 07:08 68 155/83 12/07/18 07:05 72 94 12/07/18 07:04 81 92 12/07/18 06:59 69 93 12/07/18 06:57 72 94 12/07/18 06:54 74 92 12/07/18 06:50 68 94 12/07/18 06:49 83 95 12/07/18 06:44 76 94 12/07/18 06:43 81 94 12/07/18 06:39 88 94 12/07/18 06:38 74 148/74 12/07/18 06:37 89 93 12/07/18 06:34 80 96 12/07/18 06:29 74 93 12/07/18 06:28 76 94 12/07/18 06:24 85 96 12/07/18 06:23 74 134/78 12/07/18 06:19 82 97 12/07/18 06:14 74 97 12/07/18 06:09 81 97 12/07/18 06:08 89 149/87 12/07/18 06:04 72 95 12/07/18 05:59 77 97 12/07/18 05:54 82 100 12/07/18 05:53 85 155/84 12/07/18 05:49 81 99 12/07/18 05:45 80 94 12/07/18 05:44 76 95 12/07/18 05:39 87 98 12/07/18 05:38 73 137/74 12/07/18 05:34 82 99 12/07/18 05:33 86 130/72 12/07/18 05:29 79 96 12/07/18 05:24 75 98 12/07/18 05:23 74 130/72 12/07/18 05:19 93 H 97 12/07/18 05:14 77 98 12/07/18 05:09 77 96 12/07/18 05:08 73 141/72 12/07/18 05:04 79 95 12/07/18 04:59 77 95 12/07/18 04:57 85 94 12/07/18 04:54 98 H 96 12/07/18 04:53 105 H 136/74 12/07/18 04:50 79 94 12/07/18 04:49 81 94 12/07/18 04:45 88 94 12/07/18 04:44 93 H 95 12/07/18 04:39 85 95 12/07/18 04:38 84 138/75 12/07/18 04:34 90 96 12/07/18 04:29 87 95 12/07/18 04:25 85 94 12/07/18 04:24 81 95 12/07/18 04:23 81 150/81 12/07/18 04:19 84 98 12/07/18 04:17 83 94 12/07/18 04:14 88 97 12/07/18 04:09 79 98 12/07/18 04:08 85 154/87 12/07/18 04:04 88 98 12/07/18 03:59 94 H 97 12/07/18 03:54 95 H 99 12/07/18 03:53 92 H 137/75 12/07/18 03:49 91 H 96 12/07/18 03:44 90 97 12/07/18 03:40 99.2 F 86 18 140/76 99 12/07/18 03:39 89 99 12/07/18 03:38 85 140/76 12/07/18 03:34 86 97 12/07/18 03:29 87 97 12/07/18 03:25 95 H 93 12/07/18 03:24 103 H 94 12/07/18 03:23 104 H 136/79 12/07/18 03:19 104 H 96 12/07/18 03:14 91 H 93 12/07/18 03:09 85 94 12/07/18 03:08 96 H 130/73 94 12/07/18 03:04 87 94 12/07/18 02:59 82 94 12/07/18 02:56 100 H 94 12/07/18 02:54 97 H 96 12/07/18 02:53 88 131/79 12/07/18 02:50 89 94 12/07/18 02:49 95 H 94 12/07/18 02:44 88 93 12/07/18 02:43 87 94 12/07/18 02:39 80 94 12/07/18 02:38 77 131/76 12/07/18 02:36 90 94 12/07/18 02:34 92 H 93 12/07/18 02:29 91 H 92 12/07/18 02:24 91 H 93 12/07/18 02:23 83 131/77 12/07/18 02:19 91 H 92 12/07/18 02:14 78 95 12/07/18 02:12 99 H 94 12/07/18 02:09 90 93 12/07/18 02:08 87 141/83 12/07/18 02:04 92 H 92 12/07/18 01:59 93 H 92 12/07/18 01:54 82 93 12/07/18 01:53 84 149/84 12/07/18 01:49 88 93 12/07/18 01:44 96 H 93 12/07/18 01:39 92 H 94 12/07/18 01:38 87 141/83 12/07/18 01:37 96 H 94 12/07/18 01:34 90 94 12/07/18 01:32 83 94 12/07/18 01:29 90 94 12/07/18 01:26 102 H 94 12/07/18 01:24 106 H 96 12/07/18 01:23 92 H 140/83 12/07/18 01:20 95 H 94 12/07/18 01:19 93 H 95 12/07/18 01:14 75 145/84 97 12/07/18 01:09 89 96 12/07/18 01:05 85 183/91 12/07/18 01:04 79 97 12/07/18 00:56 113 H 183/91 12/07/18 00:54 112 H 95 12/07/18 00:49 98 H 96 12/07/18 00:44 85 93 12/07/18 00:42 86 94 12/07/18 00:39 75 94 12/07/18 00:36 82 94 12/07/18 00:34 93 H 94 12/07/18 00:32 99.0 F 92 H 18 172/89 95 12/07/18 00:29 84 94 12/07/18 00:26 82 172/89 12/07/18 00:24 84 94 12/07/18 00:00 98.4 F 85 23 158/92 90 12/06/18 23:40 72 22 160/85 91 12/06/18 23:26 26 L 17 160/87 94 12/06/18 23:10 99 H 26 H 151/97 96 12/06/18 23:06 85 17 144/81 96 12/06/18 23:02 97.9 F 86 17 149/87 96 12/06/18 20:09 78 97 12/06/18 20:04 72 97 12/06/18 19:59 83 97 12/06/18 19:54 78 97 12/06/18 19:49 73 97 12/06/18 19:47 76 159/77 12/06/18 19:44 74 96 12/06/18 19:39 83 96 12/06/18 19:34 75 97 12/06/18 19:29 79 97 12/06/18 19:24 78 97 12/06/18 19:19 80 97 12/06/18 19:14 79 97 12/06/18 19:09 91 H 97 12/06/18 19:04 83 96 12/06/18 18:59 82 97 12/06/18 18:55 78 94 12/06/18 18:54 87 96 12/06/18 18:41 86 96 12/06/18 18:36 81 95 12/06/18 18:31 80 98 12/06/18 18:26 90 99 12/06/18 18:21 80 96 12/06/18 18:16 78 99 12/06/18 18:11 77 99 12/06/18 18:06 109 H 94 12/06/18 18:01 86 97 12/06/18 17:56 80 95 12/06/18 17:51 82 96 12/06/18 17:47 73 160/81 12/06/18 17:46 77 98 12/06/18 17:41 76 97 12/06/18 17:36 79 96 12/06/18 17:31 80 96 12/06/18 17:05 73 170/84 12/06/18 17:00 99 F 20 12/06/18 16:47 83 173/85 12/06/18 15:46 75 178/93 12/06/18 15:33 98.6 F 18 12/06/18 14:46 76 147/79 12/06/18 14:29 85 135/67 12/06/18 14:22 80 174/88 12/06/18 13:14 93 H 153/75 12/06/18 13:02 93 H 153/75 12/06/18 12:33 84 99 12/06/18 12:28 95 H 99 12/06/18 12:27 87 162/85 12/06/18 12:23 92 H 99 12/06/18 12:22 92 H 32 L 12/06/18 10:43 84 174/98 12/06/18 10:34 90 97 12/06/18 10:29 85 97 12/06/18 10:24 86 97 12/06/18 10:15 84 97 12/06/18 10:10 76 97 12/06/18 09:55 58 L 185/91 97 12/06/18 09:51 59 L 185/91 12/06/18 09:50 63 97 12/06/18 09:47 98.8 F 18 Intake and Output 12/06/18 12/06/18 12/07/18 15:59 23:59 07:59 Intake Total 2500 240 Output Total 350 225 Balance 2150 15 Intake: IV 2500 Oral 240 Output: Urine 350 225 Indwelling Catheter 225 Uretheral ([place]) 100 Void 150 Other: Total, Intake Amount 240 Total, Output Amount 150 100 # Voids Void 1 Estimated Blood Loss 600 - Exam Breasts: Present: normal Cardiovascular: Present: Regular rate Lungs: Present: Clear to auscultation, Normal air movement Abdomen: Present: normal appearance, soft Vulva: both: normal Uterus: Present: normal, firm, fundal height at umbilicus Extremities: Present: edema (1+ pitting edema BLE) Deep Tendon Reflex Grade: Normal +2 Incision: Present: normal, dry, dressed - Labs Labs: Abnormal lab results 12/06/18 12/07/18 12/07/18 Range/Units 15:39 06:41 06:41 WBC 20.5 H 18.3 H (4.5-11.0) K/mm3 RBC 3.32 L 3.27 L (3.65-5.03) M/mm3 Hgb 8.9 L 8.9 L (10.1-14.3) gm/dl Hct 27.3 L 27.1 L (30.3-42.9) % MCH 27 L 27 L (28-32) pg RDW 15.4 H 15.4 H (13.2-15.2) % Lymph % (Auto) 11.4 L (13.4-35.0) % [place] # 1.0 H (0.0-0.8) K/mm3 Baso # 0.2 H (0.0-0.1) K/mm3 Seg Neutrophils % 81.7 H (40.0-70.0) % Seg Neutrophils # 14.9 H (1.8-7.7) K/mm3 Creatinine 0.6 L (0.7-1.2) mg/dL Calcium 7.4 L (8.4-10.2) mg/dL Magnesium (1.7-2.3) mg/dL 12/07/18 Range/Units 06:41 WBC (4.5-11.0) K/mm3 RBC (3.65-5.03) M/mm3 Hgb (10.1-14.3) gm/dl Hct (30.3-42.9) % MCH (28-32) pg RDW (13.2-15.2) % Lymph % (Auto) (13.4-35.0) % [place] # (0.0-0.8) K/mm3 Baso # (0.0-0.1) K/mm3 Seg Neutrophils % (40.0-70.0) % Seg Neutrophils # (1.8-7.7) K/mm3 Creatinine (0.7-1.2) mg/dL Calcium (8.4-10.2) mg/dL Magnesium 3.40 H (1.7-2.3) mg/dL
[2018-12-07] MEDS: PRENATAL VITAMIN PO SCH (10:25)
[2018-12-07] MEDS: FEOSOL PO SCH (10:25)
[2018-12-07] MEDS ORDERED: APRESOLINE IV ONE (10:30)
[2018-12-07] MEDS ORDERED: AFLURIA QUAD 2018-2019 SYRINGE IM ONE (12:00)
[2018-12-07 12:38] LABS: Hematocrit 29.2 % (30.3-42.9); Hemoglobin 9.4 gm/dl (10.1-14.3)
--- NOTE | 2018-12-07 17:30 | Progress Note ---
Assessment and Plan Assessment and plan: Preeclampsia - Patient is on mag sulfate, labetalol - Management per OB Pulmonary edema - Resolved - Echo was done and normal Status post - Management per MEDICAL PRACTICE MANAGER Patient is stable, pulmonary edema resolved, no CHF. I will sign off, call me for any questions. History Interval history: Patient was seen and evaluated this morning, patient's shortness of breath resolved, no chest pain. Complains mild pain at the site of C/S incision. Hospitalist Physical - Physical exam Narrative exam: Not in cardiopulmonary distress. The patient appeared well nourished and normally developed. Vital signs as documented. Head exam is unremarkable. No scleral icterus . Neck is without jugular venous distension, thyromegaly, or carotid bruits. Lungs are clear to auscultation. Cardiac exam reveals regular rate and Rhythm. Abdominal exam reveals normal bowel sounds. Extremities are nonedematous and both femoral and pedal pulses are normal. HARBOR MASTER: Alert and oriented 3. No focal weakness. - Constitutional Vitals: Temp Pulse Resp BP Pulse Ox 99.1 F 89 18 133/63 97 12/07/18 14:15 12/07/18 17:24 12/07/18 14:15 12/07/18 16:56 12/07/18 17:24 General appearance: Present: no acute distress, well-nourished Results - Labs CBC & Chem 7: 12/07/18 12:19 12/07/18 06:41 Labs: Laboratory Last Values WBC 18.3 K/mm3 (4.5-11.0) H 12/07/18 06:41 RBC 3.27 M/mm3 (3.65-5.03) L 12/07/18 06:41 Hgb 9.4 gm/dl (10.1-14.3) L 12/07/18 12:19 Hct 29.2 % (30.3-42.9) L 12/07/18 12:19 MCV 83 fl (79-97) 12/07/18 06:41 MCH 27 pg (28-32) L 12/07/18 06:41 MCHC 33 % (30-34) 12/07/18 06:41 RDW 15.4 % (13.2-15.2) H 12/07/18 06:41 Plt Count 203 K/mm3 (140-440) 12/07/18 06:41 Lymph % (Auto) 11.4 % (13.4-35.0) L 12/07/18 06:41 [place] % (Auto) 5.7 % (0.0-7.3) 12/07/18 06:41 Eos % (Auto) 0.3 % (0.0-4.3) 12/07/18 06:41 Baso % (Auto) 0.9 % (0.0-1.8) 12/07/18 06:41 Lymph # 2.1 K/mm3 (1.2-5.4) 12/07/18 06:41 [place] # 1.0 K/mm3 (0.0-0.8) H 12/07/18 06:41 Eos # 0.1 K/mm3 (0.0-0.4) 12/07/18 06:41 Baso # 0.2 K/mm3 (0.0-0.1) H 12/07/18 06:41 Seg Neutrophils % 81.7 % (40.0-70.0) H 12/07/18 06:41 Seg Neutrophils # 14.9 K/mm3 (1.8-7.7) H 12/07/18 06:41 Sickle Cell Screen Negative (Negative) 12/04/18 09:32 Sodium 139 mmol/L (137-145) 12/07/18 06:41 Potassium 4.6 mmol/L (3.6-5.0) D 12/07/18 06:41 Chloride 104.7 mmol/L (98-107) 12/07/18 06:41 Carbon Dioxide 23 mmol/L (22-30) 12/07/18 06:41 Anion Gap 16 mmol/L 12/07/18 06:41 BUN 15 mg/dL (7-17) 12/07/18 06:41 Creatinine 0.6 mg/dL (0.7-1.2) L 12/07/18 06:41 Estimated GFR > 60 ml/min 12/07/18 06:41 BUN/Creatinine Ratio 25 % 12/07/18 06:41 Glucose 71 mg/dL (65-100) 12/07/18 06:41 Glucose Tolerance 12/05/18 08:12 Uric Acid 5.1 mg/dL (3.5-7.6) 12/03/18 12:28 Calcium 7.4 mg/dL (8.4-10.2) L 12/07/18 06:41 Magnesium 3.40 mg/dL (1.7-2.3) H 12/07/18 06:41 AST 21 units/L (5-40) 12/05/18 17:24 ALT 14 units/L (7-56) 12/05/18 17:24 Lactate Dehydrogenase 228 units/L (91-180) H 12/03/18 12:28 Urine Color [place] (Yellow) 12/03/18 12:03 Urine Turbidity Slightly-cloudy (Clear) 12/03/18 12:03 Urine pH 6.0 (5.0-7.0) 12/03/18 12:03 Ur Specific [place] 1.039 (1.003-1.030) H 12/03/18 12:03 Urine Protein >500 mg/dL (Negative) 12/03/18 12:03 Urine Glucose (UA) Neg mg/dL (Negative) 12/03/18 12:03 Urine Ketones Tr mg/dL (Negative) 12/03/18 12:03 Urine Blood Neg (Negative) 12/03/18 12:03 Urine Nitrite Neg (Negative) 12/03/18 12:03 Urine Bilirubin Neg (Negative) 12/03/18 12:03 Urine Urobilinogen 2.0 mg/dL (<2.0) 12/03/18 12:03 Ur Leukocyte Esterase Sm (Negative) 12/03/18 12:03 Urine WBC (Auto) 16.0 /HPF (0.0-6.0) H 12/03/18 12:03 Urine RBC (Auto) 4.0 /HPF (0.0-6.0) 12/03/18 12:03 U Epithel Cells (Auto) 9.0 /HPF (0-13.0) 12/03/18 12:03 Urine Mucus 3+ /HPF 12/03/18 12:03 Urine Total Volume 1200 ml 12/03/18 14:00 Ur Total Protein 24 Hr 2352.00 mg/dL (2-200) H 12/03/18 14:00 Urine Total Protein 196 mg/dL (5-11.8) H 12/03/18 14:00 Urine Opiates Screen Presumptive negative 12/03/18 18:10 Urine Methadone Screen Presumptive negative 12/03/18 18:10 Ur Barbiturates Screen Presumptive negative 12/03/18 18:10 Ur Phencyclidine Scrn Presumptive negative 12/03/18 18:10 Ur Amphetamines Screen Presumptive negative 12/03/18 18:10 U Benzodiazepines Scrn Presumptive negative 12/03/18 18:10 Urine Cocaine Screen Presumptive negative 12/03/18 18:10 U Marijuana (THC) Screen Presumptive negative 12/03/18 18:10 Drugs of Abuse Note Disclamer 12/03/18 18:10 RPR Nonreactive (Nonreactive) 12/04/18 09:32 Hep Bs Antigen Non-reactive (Negative) 12/04/18 09:32 Hepatitis C Antibody Non-reactive (NonReactive) 12/04/18 09:32 HIV 1&2 Antibody Rapid Non react (Non React) 12/04/18 09:32 HIV P24 Antigen Non react (Non React) 12/04/18 09:32 Rubella IgG Antibody Immune (Immune) 12/04/18 09:32 Blood Type O POSITIVE 12/06/18 15:44 Antibody Screen TNR 12/06/18 15:44 SUSIE Antibody Screen Negative 12/06/18 15:44 Active Medications - Current Medications Current Medications: Generic Name Dose Route Start Last Admin Trade Name Freq PRN Reason Stop Dose Admin Acetaminophen/Hydrocodone Bitart 1 each 12/07/18 01:43 12/07/18 15:25 [place] 5/325 PO 1 each Q4H PRN Administration Pain, Moderate (4-6) Calcium Carbonate/Glycine 500 mg 12/05/18 13:23 Tums PO Q4H PRN Indigestion Ferrous Sulfate 325 mg 12/07/18 10:00 12/07/18 10:25 Feosol PO 325 mg QDAY OZZIE Administration Magnesium Sulfate 40 gm in 1,000 mls @ 50 mls/hr 12/03/18 18:00 12/06/18 19:24 Magnesium Sulfate 40gm/1000ml IV 12/07/18 21:30 2 gm/hr DIRECT OZZIE 50 mls/hr Administration 2 GM/HR Oxytocin/Sodium Chloride 20 units in 1,000 mls @ 250 mls/hr 12/07/18 01:43 12/07/18 03:38 Pitocin/Ns 20 Unit/1000ml Drip IV 250 mls/hr DIRECT OZZIE Administration Ketorolac Tromethamine 30 mg 12/07/18 01:43 12/07/18 15:24 Toradol IV 12/07/18 23:44 30 mg Q6H OZZIE Administration Labetalol HCl 200 mg 12/03/18 20:55 12/07/18 10:25 Normodyne PO 200 mg BID OZZIE Administration Multi-Ingredient Ointment 1 applic 12/07/18 01:43 Lansinoh TP PRN PRN dryness/cracking Multivitamins/Iron/Calcium 1 each 12/07/18 10:00 12/07/18 10:25 Vitamin PO 1 each QDAY OZZIE Administration Naloxone HCl 0.1 mg 12/07/18 01:43 Narcan 0.4 Mg/1 Ml IV Q2MIN PRN Res Rate </= 8 or 02 SAT < 92% Ondansetron HCl 4 mg 12/06/18 19:23 Zofran IV Q8H PRN Nausea And Vomiting Simethicone 80 mg 12/07/18 01:43 Mylicon PO Q6H PRN Gas pain Sodium Chloride 10 ml 12/07/18 01:43 Sodium Chloride Flush Syringe 10 Ml IV 12/08/18 01:42 PRN NR Witch Rachelle/Glycerin 1 each 12/07/18 01:43 Tucks Pad TP PRN PRN Hemorrhoids/cleansing/soothing
[2018-12-07] MEDS ORDERED: LACTATED RINGERS 1,000 ML ONE (18:18)
[2018-12-08] MEDS: NORCO 5/325 PO PRN ×4 (06:13→20:30)
--- NOTE | 2018-12-08 09:33 | Progress Note ---
Assessment and Plan POD 2 s/p repeat c/s for severe pre-e. Patient reports feeling well, no complaints. Fundus is firm, ML, U/2. Vaginal bleeding is minimal. Abdominal incision is dressed, C/D/I. Encouraged patient to ambulate and shower today, may remove dressing in shower. Patient reports pain is well controlled with medications. Patient denies any DARNELL, visual disturbances, RUQ pain. Assessment WNL. Patient is ambulating in room, tolerating well. Encouraged to continue IS. Patient verbalizes understanding. Breast pump to bedside, will attempt to pump again soon for in NICU. VSSAF. Continue post op pathway. Subjective - Subjective Date of service: 12/08/18 Principal diagnosis: postop day 2 s/p repeat c/s for severe pre-e Interval history: Patient sent from office with elevated BP to have PIH evaluation in triage. LFTs WNL, Urine protein >500. BPs remain elevated in triage. Consult with Dr. Osorio, admit for 24 hour urine collection. Will continue to monitor BPs and determine POC. Patient reports: appetite normal, voiding normally, pain well controlled, ambulating normally [place]: in NICU Objective - Vital Signs Latest vital signs: Vital Signs Temp Pulse Resp BP BP Pulse Ox 12/08/18 06:13 18 12/07/18 23:54 97.7 F 75 20 145/78 100 12/07/18 22:00 18 12/07/18 21:56 92 H 145/86 12/07/18 21:55 95 H 18 93 12/07/18 21:54 87 95 12/07/18 21:49 85 97 12/07/18 21:48 104 H 94 12/07/18 21:44 83 95 12/07/18 21:39 84 96 12/07/18 21:34 83 97 12/07/18 21:31 90 145/80 12/07/18 21:30 18 12/07/18 21:29 88 96 12/07/18 21:26 84 145/80 12/07/18 21:24 87 96 12/07/18 21:19 96 H 97 12/07/18 21:14 94 H 97 12/07/18 21:09 86 97 12/07/18 21:04 90 96 12/07/18 20:59 84 97 12/07/18 20:56 89 150/82 04/23/19 20:55 19 12/07/18 20:54 90 97 12/07/18 20:49 93 H 97 12/07/18 20:44 89 97 12/07/18 20:39 87 97 12/07/18 20:34 88 98 12/07/18 20:29 85 97 12/07/18 20:26 91 H 140/83 12/07/18 20:24 81 97 12/07/18 20:19 82 98 12/07/18 20:14 98 H 97 12/07/18 20:09 92 H 97 12/07/18 20:04 85 98 12/07/18 19:59 92 H 97 12/07/18 19:56 82 142/80 12/07/18 19:54 91 H 98 12/07/18 19:49 92 H 97 12/07/18 19:44 91 H 98 12/07/18 19:39 90 98 12/07/18 19:34 82 97 12/07/18 19:29 83 97 12/07/18 19:28 99.1 F 83 18 141/80 97 12/07/18 19:26 83 141/80 12/07/18 19:24 84 98 12/07/18 19:19 81 96 12/07/18 19:14 86 97 12/07/18 19:09 91 H 97 12/07/18 19:04 91 H 96 12/07/18 18:59 83 95 12/07/18 18:56 81 134/69 12/07/18 18:54 81 95 12/07/18 18:49 82 95 12/07/18 18:44 83 95 12/07/18 18:39 90 95 12/07/18 18:34 80 90 12/07/18 18:30 85 94 12/07/18 18:29 83 95 12/07/18 18:26 79 126/70 12/07/18 18:24 84 96 12/07/18 18:19 93 H 95 12/07/18 18:14 94 H 97 12/07/18 18:09 79 96 12/07/18 18:04 84 96 12/07/18 18:00 98.9 F 18 12/07/18 17:59 85 96 12/07/18 17:56 74 121/66 12/07/18 17:54 82 95 12/07/18 17:49 83 95 12/07/18 17:44 83 95 12/07/18 17:39 90 97 12/07/18 17:34 87 97 12/07/18 17:29 93 H 97 12/07/18 17:26 78 122/71 12/07/18 17:24 89 97 12/07/18 17:19 95 H 98 12/07/18 17:14 84 97 12/07/18 17:10 84 94 12/07/18 17:09 80 95 12/07/18 17:04 80 94 12/07/18 16:59 84 96 12/07/18 16:56 80 133/63 12/07/18 16:54 86 96 12/07/18 16:49 91 H 97 12/07/18 16:44 79 96 12/07/18 16:39 88 97 12/07/18 16:34 90 97 12/07/18 16:29 94 H 97 12/07/18 16:25 18 12/07/18 16:24 94 H 136/74 97 12/07/18 16:19 99 H 97 12/07/18 16:14 92 H 98 12/07/18 16:09 97 H 139/70 97 12/07/18 16:04 92 H 97 12/07/18 15:59 97 H 99 12/07/18 15:54 90 18 137/69 99 12/07/18 15:49 90 100 12/07/18 15:44 92 H 100 12/07/18 15:39 93 H 134/72 99 12/07/18 15:34 101 H 98 12/07/18 15:29 100 H 98 12/07/18 15:24 95 H 141/73 97 12/07/18 15:19 107 H 97 12/07/18 15:14 95 H 98 12/07/18 15:09 97 H 135/67 97 12/07/18 15:04 91 H 97 12/07/18 14:59 89 96 12/07/18 14:54 98 H 124/62 98 12/07/18 14:49 104 H 98 12/07/18 14:44 102 H 96 12/07/18 14:39 88 128/72 96 12/07/18 14:34 103 H 96 12/07/18 14:29 94 H 98 12/07/18 14:24 90 136/72 97 12/07/18 14:19 95 H 98 12/07/18 14:15 99.1 F 18 12/07/18 14:14 91 H 98 12/07/18 14:09 88 137/71 97 12/07/18 14:04 90 98 12/07/18 13:59 90 95 12/07/18 13:54 87 135/67 96 12/07/18 13:49 91 H 97 12/07/18 13:44 80 98 12/07/18 13:39 79 136/72 97 12/07/18 13:34 84 98 12/07/18 13:29 92 H 97 12/07/18 13:24 94 H 131/72 99 12/07/18 13:19 85 98 12/07/18 13:14 92 H 98 12/07/18 13:09 109 H 132/69 98 12/07/18 13:04 104 H 98 12/07/18 12:59 92 H 98 12/07/18 12:54 96 H 144/71 98 12/07/18 12:49 98 H 100 12/07/18 12:44 106 H 100 12/07/18 12:39 102 H 139/76 96 12/07/18 12:34 88 97 12/07/18 12:29 88 96 12/07/18 12:24 83 137/73 96 12/07/18 12:19 84 97 12/07/18 12:14 87 96 12/07/18 12:09 83 97 12/07/18 12:04 105 H 97 12/07/18 12:00 98.1 F 12/07/18 11:59 103 H 97 12/07/18 11:54 93 H 144/66 97 12/07/18 11:49 95 H 97 12/07/18 11:44 89 96 12/07/18 11:39 92 H 138/83 98 12/07/18 11:34 96 H 98 12/07/18 11:29 98 H 97 12/07/18 11:24 86 144/87 97 12/07/18 11:19 86 97 12/07/18 11:14 92 H 98 12/07/18 11:09 85 150/95 98 12/07/18 11:04 81 98 12/07/18 10:59 87 97 12/07/18 10:54 92 H 150/92 97 12/07/18 10:49 85 96 12/07/18 10:44 88 96 12/07/18 10:39 94 H 148/92 97 12/07/18 10:34 78 97 12/07/18 10:29 80 97 12/07/18 10:25 85 168/103 12/07/18 10:24 74 168/103 97 12/07/18 10:19 78 168/103 98 12/07/18 10:14 72 97 12/07/18 10:09 78 98 12/07/18 10:04 74 98 12/07/18 09:59 76 179/102 98 12/07/18 09:58 19 12/07/18 09:54 81 98 12/07/18 09:49 76 98 12/07/18 09:44 72 98 12/07/18 09:41 71 172/100 12/07/18 09:39 73 98 12/07/18 09:36 75 173/97 12/07/18 09:34 77 97 12/07/18 09:30 98.1 F 12/07/18 09:29 79 175/102 97 12/07/18 09:24 87 98 Intake and Output 12/07/18 12/08/18 12/08/18 23:59 07:59 15:59 Intake Total 520 Output Total 950 1200 Balance -950 -680 Intake: Oral 520 Output: Urine 950 1200 Indwelling Catheter 950 800 Void 400 Other: Total, Intake Amount 200 Total, Output Amount 600 200 # Voids Indwelling Catheter 1 Void 1 - Exam Breasts: Present: normal Cardiovascular: Present: Regular rate, Normal S1, Normal S2 Lungs: Present: Clear to auscultation Abdomen: Present: normal appearance, soft, normal bowel sounds Vulva: both: normal Uterus: Present: normal, firm Extremities: Present: normal Deep Tendon Reflex Grade: Normal +2 Incision: Present: dressed (cdi) - Labs Labs: Abnormal lab results 12/07/18 Range/Units 12:19 Hgb 9.4 L (10.1-14.3) gm/dl Hct 29.2 L (30.3-42.9) %
[2018-12-08] MEDS: FEOSOL PO SCH (10:44)
[2018-12-08] MEDS: PRENATAL VITAMIN PO SCH (10:44)
[2018-12-08] MEDS: NORMODYNE PO SCH ×2 (10:45→23:01)
--- NOTE | 2018-12-08 12:23 | Event Note ---
Date: 12/08/18 Agree with exam and noted. Will con't routine pp care and post op care. Will montior bp a full day off of the magnesium to determine if adjustments need to be made to the labetalol that pt is currently taking.
--- NOTE | 2018-12-08 16:32 | Event Note ---
Date: 12/08/18 Patient notified of + chlamydia result on pap from office visit. Treatment will be ordered as inpatient. Patient verbalizes understanding. Questions encouraged and answered.
[2018-12-08] MEDS ORDERED: ZITHROMAX PO ONE (17:30)
[2018-12-08] MEDS: IBUPROFEN PO PRN (20:30)
[2018-12-09] MEDS: IBUPROFEN PO PRN ×3 (02:11→22:08)
[2018-12-09] MEDS: NORCO 5/325 PO PRN ×5 (02:12→22:28)
[2018-12-09] MEDS ORDERED: BOOSTRIX IM ONE (06:00)
[2018-12-09] MEDS ORDERED: NORMODYNE PO SCH (08:08)
--- NOTE | 2018-12-09 08:16 | Progress Note ---
Assessment and Plan patient doing well, no complaints. Incision D&I, lochia scant, fundus firm, afebrile, b/p elevated 160's/90. She denies DARNELL/Visual changes or epigastric pain. Will increase labetalol from 200mg BID to 300mg BID and continue to monitor closely. Continue current management. - Patient Problems (1) Insufficient care in third trimester Current Visit: Yes Status: Acute (2) delivery delivered Current Visit: Yes Status: Acute (3) Severe pre-eclampsia Current Visit: Yes Status: Acute Qualifiers: Trimester: unspecified trimester Qualified Code(s): O14.10 - Severe pre- eclampsia, unspecified trimester Subjective - Subjective Date of service: 12/09/18 Principal diagnosis: postop day 3 s/p repeat c/s for severe pre-e Patient reports: appetite normal, voiding normally, pain well controlled, flatus, ambulating normally, no dizzy ambulation, no nauseated : in NICU (pumping breast milk) Objective - Vital Signs Latest vital signs: Vital Signs Temp Pulse Resp BP BP Pulse Ox 12/09/18 02:06 98.1 F 87 20 165/95 97 12/08/18 23:01 86 166/85 12/08/18 16:10 98.9 F 75 18 168/87 98 12/08/18 15:35 18 12/08/18 14:35 18 12/08/18 11:44 20 12/08/18 10:45 93 H 154/87 12/08/18 10:44 20 12/08/18 09:10 98.7 F 93 H 22 154/87 99 Intake and Output 12/08/18 12/09/18 12/09/18 23:59 07:59 15:59 Intake Total 720 120 Balance 720 120 Intake: Oral 240 120 Intake, Free Water 480 Other: Total, Intake Amount 240 120 # Voids Void 1 1 - Exam Breasts: Present: normal, Cardiovascular: Present: Regular rate Lungs: Present: Clear to auscultation, Normal air movement Abdomen: Present: normal appearance, soft, normal bowel sounds Vulva: both: normal Uterus: Present: normal, firm, fundal height at umbilicus Extremities: Present: edema (1+ nonpitting) Deep Tendon Reflex Grade: Normal +2 Incision: Present: normal, dry, intact
[2018-12-09] MEDS: PRENATAL VITAMIN PO SCH (10:11)
[2018-12-09] MEDS: NORMODYNE PO SCH ×2 (10:11→22:07)
[2018-12-09] MEDS: FEOSOL PO SCH (10:11)
[2018-12-10] MEDS: NORCO 5/325 PO PRN ×2 (05:48→20:51)
[2018-12-10] MEDS: IBUPROFEN PO PRN ×3 (05:49→18:51)
--- NOTE | 2018-12-10 08:57 | Progress Note ---
Assessment and Plan POD 4 s/p repeat c/s for severe pre-e. Patient reports feeling well, no complaints other than mild headache that has continued since delivery. Fundus is firm, ML, U/2. Vaginal bleeding is small. Abdominal incision is well- approximated, healing well, no bleeding or drainage, no s/s of infection. Steri strips in place. Encouraged patient to continue ambulation and IS. Patient reports incisional pain/cramping is well controlled with medications. Patient denies any visual disturbances, RUQ pain. Assessment WNL, DTRs 2+. Will continue to monitor BPs and assessment today. Patient aware to report any changes or worsening s/s. Subjective - Subjective Date of service: 12/10/18 Principal diagnosis: postop day 4 s/p repeat c/s for severe pre-e Patient reports: appetite normal, voiding normally, pain well controlled, flat us, ambulating normally [place]: in NICU Objective - Vital Signs Latest vital signs: Vital Signs Temp Pulse Resp BP BP Pulse Ox 12/10/18 05:48 18 12/09/18 23:47 98.0 F 20 135/68 12/09/18 23:45 68 12/09/18 22:08 20 12/09/18 22:07 84 168/94 12/09/18 17:12 155/92 12/09/18 17:10 97.6 F 71 18 184/97 100 12/09/18 15:04 18 12/09/18 11:12 18 12/09/18 10:12 18 12/09/18 10:11 107 H 143/90 12/09/18 09:00 97.7 F 81 16 143/90 98 Intake and Output 12/09/18 12/10/18 12/10/18 23:59 07:59 15:59 Intake Total 240 Balance 240 Intake: Oral 240 Other: Total, Intake Amount 240 # Voids Void 1 1 - Exam Breasts: Present: normal Cardiovascular: Present: Regular rate, Normal S1, Normal S2 Lungs: Present: Clear to auscultation Abdomen: Present: normal appearance, soft, normal bowel sounds Vulva: both: normal Uterus: Present: normal, firm Extremities: Present: normal Incision: Present: normal, dry, intact
[2018-12-10] MEDS: PRENATAL VITAMIN PO SCH (09:03)
[2018-12-10] MEDS: NORMODYNE PO SCH ×2 (09:03→21:02)
[2018-12-10] MEDS: FEOSOL PO SCH (09:03)
[2018-12-10] MEDS ORDERED: APRESOLINE IV ONE (10:00)
--- NOTE | 2018-12-10 11:59 | Event Note ---
Date: 12/10/18 BPs still elevated. Will give labetalol 100mg po times one now and increase evening dose to 400mg bid from 300 mg bid. Spoke with JEOVANNY Davis as I was not able to get connected to RN who has the pt. Advised to call provider is there are any question regarding the treatment plan.
[2018-12-10] MEDS ORDERED: NORMODYNE PO ONE (12:53)
[2018-12-11] MEDS: PROCARDIA XL PO SCH ×2 (01:00→11:29)
[2018-12-11] MEDS: IBUPROFEN PO PRN ×3 (01:05→22:46)
[2018-12-11] MEDS: NORCO 5/325 PO PRN ×2 (04:05→22:45)
--- NOTE | 2018-12-11 08:15 | Progress Note ---
Assessment and Plan POD 5 s/p repeat c/s for severe pre-e. Patient reports feeling well, no complaints other than mild headache that has continued since delivery. Fundus is firm, ML, U/2. Vaginal bleeding is scant. Abdominal incision is well- approximated, healing well, no bleeding or drainage, no s/s of infection. Steri strips in place. Encouraged patient to continue ambulation and IS. Patient reports incisional pain/cramping is well controlled with medications. Patient denies any visual disturbances, RUQ pain. Assessment WNL, DTRs 2+. Labetalol was increased last night for 2200 dose from 300mg to 400 labetalol, also procardia was added. Will monitor BPs on new doses of medications this morning and consult with Dr. Little to determine discharge plans. Subjective - Subjective Date of service: 12/11/18 Principal diagnosis: postop day 5 s/p repeat c/s for severe pre-e Interval history: Patient sent from office with elevated BP to have [facility] evaluation in triage. LFTs WNL, Urine protein >500. BPs remain elevated in triage. Consult with Dr. Osorio, admit for 24 hour urine collection. Will continue to monitor BPs and determine POC. Patient started on magnesium for severe range BPs. Repeat c/s performed for severe pre-e. Patient reports: appetite normal, voiding normally, pain well controlled, flatus, ambulating normally : in NICU Objective - Vital Signs Latest vital signs: Vital Signs Temp Pulse Resp BP BP BP Pulse Ox 12/11/18 07:19 98.5 F 98 H 18 146/74 12/11/18 04:23 98.7 F 76 16 163/99 94 12/11/18 00:22 98.6 F 77 18 149/87 94 12/10/18 21:15 98.7 F 82 18 137/76 99 12/10/18 21:02 165/85 12/10/18 20:24 98.6 F 18 165/105 12/10/18 16:16 98.4 F 80 17 170/88 99 12/10/18 14:48 98.9 F 102 H 18 156/92 99 12/10/18 12:57 87 12/10/18 11:32 98.7 F 83 18 178/101 98 12/10/18 11:27 98.7 F 18 184/102 12/10/18 10:10 79 149/87 12/10/18 10:05 150/82 12/10/18 09:58 177/114 12/10/18 09:03 178/99 12/10/18 08:27 98.5 F 86 18 178/99 97 Intake and Output 12/10/18 12/11/18 12/11/18 23:59 07:59 15:59 Intake Total 500 480 Balance 500 480 Intake: Oral 200 480 Intake, Free Water 300 Other: Total, Intake Amount 200 480 - Exam Breasts: Present: normal Cardiovascular: Present: Regular rate, Normal S1, Normal S2 Lungs: Present: Clear to auscultation Abdomen: Present: normal appearance, soft, normal bowel sounds Vulva: both: normal Uterus: Present: normal, firm Extremities: Present: normal Incision: Present: normal, dry, intact
--- NOTE | 2018-12-11 11:27 | Event Note ---
Date: 12/11/18 Called patient's RN to check status of 1000 schedued dose of labetalol and procardia. RN states that she has not given them yet. Explained importance of administering her medications on time and as scheduled as the patient's BP have been fluctuating and we are attempting to monitor effects of new dosing of medications in hopes of stabilizing her for discharge. RN states she will give them now. Dr. Little aware of late medication administration.
[2018-12-11] MEDS: FEOSOL PO SCH (11:29)
[2018-12-11] MEDS: NORMODYNE PO SCH ×2 (11:29→22:45)
[2018-12-11] MEDS: PRENATAL VITAMIN PO SCH (11:29)
[2018-12-12] MEDS: PRENATAL VITAMIN PO SCH (10:29)
[2018-12-12] MEDS: FEOSOL PO SCH (10:30)
[2018-12-12] MEDS: NORMODYNE PO SCH (10:30)
[2018-12-12] MEDS: IBUPROFEN PO PRN (10:30)
[2018-12-12] MEDS: PROCARDIA XL PO SCH (10:30)
--- NOTE | 2018-12-12 11:14 | Discharge Summary ---
Providers - Providers Date of Admission: 12/03/18 15:04 Date of discharge: 12/12/18 Attending physician: DELICIA TERRAZAS 12/05/18 18:45 Consult to Physician [CONS] Routine Comment: Spoke to Dr. Thomas, he is aware of consult Consulting Provider: MARLENE ROMANO Physician Instructions: Reason For Exam: Abnormal CXR 12/05/18 19:12 Consult to Physician [CONS] Routine Comment: Consulting Provider: LLOYD RODRIGUEZ Physician Instructions: very limited care, new dx gdm and pre-e Reason For Exam: pre-e, 31 weeks, anticipate delivery 12/07/18 01:43 Consult to [employer] [CONS] Routine Reason For Exam: Primary care physician: DELICIA TERRAZAS Hospitalization Reason for admission: IUP - Delivery: Procedure: section complications: other (persistent elevated BP's) Discharge diagnosis: delivery (Severe Preeclampsia) Hospital course: Patient presened to the office for her first OB visit with elevated BP's and possible history of CHTN, she was admitted and diagnosed with preeclampsia. She received steroids however had to be delivered d/t severe features. Her PP course was complicated by persistently elevated BP's. BY POD#5 BP remained < 160/100 on a stable regimen, she was without complaints and desired d/c home Condition at discharge: Good Disposition: DC-01 TO HOME OR SELFCARE - Discharge Diagnoses (1) delivery delivered Status: Acute (2) Insufficient care in third trimester Status: Acute (3) Severe pre-eclampsia Status: Acute Qualifiers: Trimester: unspecified trimester Qualified Code(s): O14.10 - Severe pre- eclampsia, unspecified trimester Plan - Discharge Medications Prescriptions: Ferrous Sulfate [Feosol 325 MG tab] 325 mg PO BID #60 tablet Labetalol HCl 300 mg PO BID #60 tablet Ibuprofen [Motrin 800 MG tab] 800 mg PO Q6H PRN #30 tablet PRN Reason: Pain Labetalol [Normodyne TAB] 200 mg PO BID #90 tablet oxyCODONE /ACETAMINOPHEN [Percocet 5/325 mg] 1 - 2 tab PO Q4H PRN #30 tablet PRN Reason: Pain, Moderate NIFEdipine XL [Procardia Xl] 60 mg PO QDAY #30 tablet - Provider Discharge Summary Activity: no sex for 6 weeks, no heavy lifting 4 weeks, no strenuous exercise Additional instructions: [] Smoking cessation referral if applicable(refer to patient education folder for contact #) [] Refer to [facility] Booklet Call your doctor immediately for: * Fever > 100.5 * Heavy vaginal bleeding ( >1 pad per hour) * Severe persistent headache * Shortness of breath * Reddened, hot, painful area to leg or breast * Drainage or odor from incision. * Keep incision clean and dry at all times and follow doctor's instructions regarding bathing/showering - Follow up plan Follow up: DELICIA TERRAZAS MD [Primary Care Provider] - 7 Days Forms: [facility] Discharge Summary
[2018-12-12 12:16] VITALS: BP 144/84
== END 2018-12-12 12:15 | disposition home or self-care (01) | DRG 765 ==
LOC: TRG 11:51 → LD 15:04 → OB 12-07 22:22
PROVIDERS: ADMIT Obstetrics & Gynecology; ATTEND Obstetrics & Gynecology
PROC: 10D00Z1 Extraction of Products of Conception, Low, Open Approach (ICD-10-PCS; principal; 2018-12-06)
DX: O34.211 Maternal care for low transverse scar from previous cesarean delivery (principal); O60.14X0 Preterm labor third trimester with preterm delivery third trimester, not applicable or unspecified; O11.4 Pre-existing hypertension with pre-eclampsia, complicating childbirth; O12.04 Gestational edema, complicating childbirth; J81.1 Chronic pulmonary edema; Z3A.31 31 weeks gestation of pregnancy; Z37.0 Single live birth; Z82.49 Family history of ischemic heart disease and other diseases of the circulatory system; Z83.3 Family history of diabetes mellitus
CPT/HCPCS: 36415; 71045; 76705; 80048; 80307; 81001; 82565; 82951; 83615; 83735; 84156; 84450; 84460; 84550; 85014; 85018; 85025; 85027; 85660; 86592; 86706; 86762; 86803; 86850; 86900; 86901; 87806; 88307; 90471; 90686; 90715; 93005; 93010; 93306; G0378; C1765; J0360; J0690; J0702; J1170; J1885; J1940; J2001; J2250; J2370; J2405; J2590; J2704; J2765; J3010; J3475; J7120

== ENCOUNTER 2019-12-31 01:36 | Emergency (ER) | payer OTHER ==
[2019-12-31 01:45] VITALS: BP 147/99
[2019-12-31] MEDS ORDERED: traMADol 50 MG TAB PO ONE (03:13)
--- NOTE | 2019-12-31 03:13 | Emergency Department Report ---
[facility] Chief Complaint: Wound/Laceration Stated Complaint: RIGHT LEG INJURY Time Seen by Provider: 12/31/19 02:54 Occurred When: Today Severity: mild Tetanus Status: Up to Date Laceration Symptoms: Yes Pain, No Foreign Body Sensation, No Numbness, No Weakness Other History: 24-year-old -[place] female presents to the emergency room for a right thigh laceration from hitting her right thigh against a couch that had a nail sticking out. Patient is unsure if she is up-to-date on her tetanus. Patient reports that she cleaned it out with peroxide. Patient has no known drug allergies has taken nothing for pain. ED Review of Systems ROS: Stated complaint: RIGHT LEG INJURY Other details as noted in HPI ED Past Medical Hx - Past Medical History Hx Hypertension: No Hx Heart Attack/AMI: No Hx Congestive Heart Failure: No Hx Diabetes: No Hx Deep Vein Thrombosis: No Hx Liver Disease: No Hx Renal Disease: No Hx Sickle Cell Disease: No Hx Seizures: No Hx Asthma: No Hx COPD: No Hx HIV: No - Surgical History Additional Surgical History: csection x 1 - Social History Smoking Status: Never Smoker Substance Use Type: None - Medications Home Medications: Home Medications Medication Instructions Recorded Confirmed Last Taken Type Ferrous Sulfate [Feosol 325 MG tab] 325 mg PO BID #60 tablet 12/06/18 Unknown Rx Ibuprofen [Motrin 800 MG tab] 800 mg PO Q6H PRN #30 tablet 12/06/18 Unknown Rx oxyCODONE /ACETAMINOPHEN [Percocet 1 - 2 tab PO Q4H PRN #30 tablet 12/06/18 Unknown Rx 5/325 mg] Labetalol HCl [Labetalol 300mg TAB] 300 mg PO BID #60 tablet 12/09/18 Unknown Rx NIFEdipine XL [Procardia Xl] 60 mg PO QDAY #30 tablet 12/12/18 Unknown Rx labetaloL [Labetalol 200mg TAB] 200 mg PO BID #90 tablet 12/12/18 Unknown Rx Laceration Physical Exam - Exam General: Vital signs noted. No distress. Alert and acting appropriately. Wound Length (cm): 2 (Avulsion laceration) Laceration Location: Lower Extremity (Right thigh) Laceration Exam: Yes Normal Distal CMS, No Foreign Body, No Exposed Tendon, Vessel, or Nerve, No Tendon Injury ED Course Vital Signs 12/31/19 01:43 Temperature 98.6 F Pulse Rate 80 Respiratory 18 Rate Blood Pressure 147/99 O2 Sat by Pulse 98 Oximetry ED Medical Decision Making - Medical Decision Making 24-year-old -[place] female presents to the emergency room for a right thigh laceration from hitting her right thigh against a couch that had a nail sticking out. Patient is unsure if she is up-to-date on her tetanus. Patient reports that she cleaned it out with peroxide. Patient has no known drug allergies has taken nothing for pain. Wound was cleaned and bandaged by this provider. Laceration is not able to be repaired as is an avulsion wound there is no skin to approximate. Discussed the patient to keep the wound clean and dry. She can place [id number] triple antibiotic if she chooses to. Patient is up-to-date on her tetanus as she had it on for 2018 after giving to a baby here at [facility] emergency room. Critical care attestation.: If time is entered above; I have spent that time in minutes in the direct care of this critically ill patient, excluding procedure time. ED Disposition Clinical Impression: Laceration of thigh, right Disposition: DC-01 TO HOME OR SELFCARE Is pt being admited?: No Does the pt Need Aspirin: No Condition: Stable Instructions: Laceration (ED) Additional Instructions: Keep wound clean and dry change bandage daily. You can use [id number] triple antibiotic if you choose. Referrals: ARPITA SMART MD [Primary Care Provider] - 3-5 Days Forms: Work/School Release Form(ED)
== END 2019-12-31 03:35 | disposition home or self-care (01) ==
LOC: ED 01:36
DX: S71.119A Laceration without foreign body, unspecified thigh, initial encounter (principal); X58.XXXA Exposure to other specified factors, initial encounter; Y93.89 Activity, other specified; Y92.89 Other specified places as the place of occurrence of the external cause; Y99.8 Other external cause status; Z79.899 Other long term (current) drug therapy; Z98.890 Other specified postprocedural states
CPT/HCPCS: 99281

== ENCOUNTER 2022-05-03 15:02 | Emergency (ER) | payer OTHER ==
[2022-05-03 15:59] VITALS: BP 133/90
== END 2022-05-03 23:23 | disposition left against medical advice (07) ==
LOC: ED 15:02
DX: R51.9 Headache, unspecified (principal); Z53.21 Procedure and treatment not carried out due to patient leaving prior to being seen by health care provider